=== PATIENT | male | born 1945 | race Caucasian/White ===

== ENCOUNTER 2018-05-18 14:51 | Emergency (ER) | payer MEDICARE, SELFPAY ==
[2018-05-18 14:56] VITALS: BP 142/83; PULSE 80; RESP 20; TEMP 36.6; O2SAT 97
--- NOTE | 2018-05-18 15:08 | ED.GENADUL_ITS ---
Discharge Plan Disposition Patient Disposition: HOME Condition: Stable Discharge Details Chief Complaint: Abd Prob Clinical Impression: Hematuria, Bladder mass, Left kidney mass Primary Care Provider: Brooks Davila ED Provider: Aure Ortiz Home Meds and New Rx's Prescriptions: Continue lorazepam 0.5 mg Tablet PO DAILY RF: 0 ranitidine HCl 150 mg Tablet 150 mg PO DAILY RF: 0 warfarin 5 mg Tablet 5 mg PO DAILY RF: 0 Discharge Instructions Instructions: Hematuria (ED) Additional Instructions: You should receive a call from care management regarding follow-up with urology at the [place]. You can also attempt to make an appointment with urology at the [place] within the next week. Return immediately to the emergency department any worsening or new concerning symptoms. Discharge Data Discharge Physician: Aure Ortiz Medical Decision Making 73yo M who is wheelchair bound due to severe osteoarthritis in b/l hips/knees who presents for hematuria with clots since last night. Admits to chronic left lower abdominal pain and urinary frequency for years but no acute complaint of abdominal pain. Denies fever, vomiting or diarrhea. No acute cauda equina symptoms. He state he has normal motor and sensory function below the waist for urinary and bowel but he only uses urinal and pads for bladder and bowel as he is wheelchair bound and does not ambulate due to severe leg pain. Mild hypertension otherwise vitals within normal limits. Appears generally unkempt, foul smelling, which seems to be from abdomen/groin candidal rash which does not appear acutely infected. Afebrile. Abdomen soft and diffusely mildly tender. No acute findings on exam. No CVAT. Chronic b/l LE edema with venous stasis. Differential diagnoses includes UTI, pyelonephritis, renal stone, neoplasm. My concern with tobacco history would be neoplasm. Will place an IV, labs, urinalysis, CT abdomen/pelvis, bolus IVF. 1745 --labs and imaging reviewed. White blood cell count 7.52. Hemoglobin 17.7. INR 2.2. Creatinine 0.94. Urinalysis notes greater than 50 RBCs but negative leukocyte esterase, negative nitrite. Urine culture sent. CT imaging notes a bladder wall mass which may represent inflammation, infection or neoplastic process. There was also mention of a left kidney mass. Discussed CT results with [facility] radiologist and she noted there was a significant amount of motion artifact during the study and difficult to assess. There was a questionable transverse colon mass, diverticulitis, and pneumoperitoneum, although it was thought that this was likely due to motion artifact. 1800 -- D/w Dr. Cherry and no acute intervention indicated. Recommends patient can follow[facility] with [facility] for [facility]. As patient is hemodynamically stable, normal white blood cell count, no nausea or vomiting, no complaint of acute abdominal pain, afebrile -- the findings of questionable transverse colon mass, diverticulitis, and pneumoperitoneum are likely due to motion artifact. These results were explained to patient and girlfriend. She states he has had a colonscopy within the last 2-3 years which has been normal. They are requesting to go home. She states patient is at his baseline and she feels good to take him home. Will place patient on care management list to help arrange for a follow-up appointment with the [place] [facility]. states that patient has seen urology there within the past year for his BPH. HPI General Mode of arrival: ambulatory . Date/Time Provider Initiated Documentation: 05/18/18 15:00 . Limitations to Documentation: no limitations . Information obtained by: patient . HPI Narrative: Pt is a 73yo M who presents for possible blood in urine since last night. states that she noticed reddish brown urine with clots last night. She states that pt has not ambulated since last year after a fall but has no diagnosed injury or illness and she states they attribute his inability to walk due to severe arthritis in hips and knees b/l. Pt urinates in urinal at baseline. Admits to a h/o chronic urinary frequency x 3 years and also admits to chronic LLQ abd pain for years and states this is no worse than usual. Denies fever, dysuria, flank pain. 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 States he is followed at the [place] and last saw his pcp and had PT/ INR checked on 04/27 but she does not know the results and denies any new meds or change in medications. Admits to weight loss of 30 lbs in last year but has been eating less. He does admit to having normal sensation and motor function below the waist but that he urinates in a urinal and stools on a pad due to severe leg pain with movement. Past medical history: DVT, GERD, BPH Surgical history: Cholecystectomy, Perforated ulcer Social history: Smokes tobacco, Denies alcohol or drugs Meds: Coumadin, Zantac, Lorazepam, Flomax Allergies: NKDA [facility] Home Medications Medication Instructions Recorded Confirmed lorazepam mg PO DAILY 05/18/18 ranitidine HCl 150 mg PO DAILY 05/18/18 05/18/18 warfarin 5 mg PO DAILY 05/18/18 05/18/18 Allergies Allergy/AdvReac Type Severity Reaction Status Date / Time No Known Allergies Allergy Unverified 05/18/18 14:59 General Stated Complaint: Abd Prob SHAKIRA: 3 Review of Systems Review of Systems All systems reviewed & are unremarkable except as noted in HPI and below Constitutional Reports as per HPI, Denies chills and Denies fever(s) Eyes Denies blurry vision ENT Denies dizziness, Denies sore throat and Denies throat swelling Cardiovascular Denies chest pain and Denies dyspnea Respiratory Denies dyspnea Gastrointestinal Reports abdominal pain (chronic), Denies diarrhea and Denies vomiting Genitourinary Reports hematuria, Denies dysuria, Denies testicular pain and Reports urinary frequency ( chronic) Musculoskeletal Denies back pain and Denies numbness Integumentary/Breasts Denies lesions and Denies rash Neurologic Denies dizziness and Denies numbness Allergic/Immunologic Denies throat swelling [facility] Social History Smoking/Tobacco Use Status: Current every day Exam Const General: cooperative, no acute distress, well groomed (foul smelling) and disheveled Orientation: alert and awake [facility] Head: normal to inspection Ears: hearing grossly normal bilaterally and external ears normal General nose exam: external nose normal Face and sinus: normal facial exam Eyes General: appearance normal, both eyes and all related structures Eyelids: eyelids normal Neck Neck: normal visual inspection Lymphatic: no lymphadenopathy noted Chest Chest: normal inspection of the chest Resp Effort & Inspection: normal respiratory effort and able to speak in complete sentences Auscultation: clear to auscultation bilaterally Cardio Rate: regular rate Rhythm: regular rhythm GI Inspection: other (Foul smelling, with erythematous candidal rash lower abdomen and b/l groin, no induration/abscess/drainage. ) Palpation: not firm, no guarding, no hepatosplenomegaly, no masses and tender ( mildly diffusely tender) Auscultation: normal bowel sounds Rectal Exam: other (brown stool around anus) Other: No blood noted at tip of penis. No tenderness to palpation, erythema/ edema/ecchymoses noted to testes b/l. Back/Spine/Pelvis Back: no CVA tenderness Neuro General: alert and awake Speech: speech normal Gait: normal gait Motor: other (moves all extremities spontaneously) Extrem Other: Chronic lower extremity skin changes with nonpitting indurated edematous lower extremities with purplish discoloration to distal lower extremities. B/L DP/PT pulses intact. B/L pedal edema. Psych Appearance: grossly normal Mental Status: mental status grossly normal Speech and Movement: speech and movement normal Affect: normal affect Thought Process: normal Course 05/18/18 16:37 Urine - Reflex from Ua Urine Culture - Pending Laboratory Tests Range/Units 05/18/18 05/18/18 05/18/18 15:40 15:40 15:40 WBC (4.4-10.8) k/cumm 7.52 RBC (4.50-6.00) m/cumm 5.72 Hgb (13.5-17.5) g/dL 17.7 H Hct (40.0-50.0) % 53.6 H MCV (80-95) fL 93.7 MCH (27.0-33.0) pg 30.9 MCHC (32.0-36.0) g/dL 33.0 RDW (11.8-14.1) % 14.9 H Plt Count (130-400) x1000/uL 175 MPV (8.0-11.0) fL 10.8 Immature Gran % 0.1 Neutrophils % 78.1 Lymphocytes % 15.8 Monocytes % 5.3 Eosinophils % 0.4 Basophils % 0.3 Absolute Neutrophils (1.2-6.7) k/cumm 5.87 Absolute Lymphocytes (1.2-3.4) k/cumm 1.19 L Absolute Monocytes (0.11-0.7) k/cumm 0.40 Absolute Eosinophils (0.0-0.7) k/cumm 0.03 Absolute Basophils (0.0-0.2) k/cumm 0.02 PT (9.3-10.8) sec 20.9 H INR (1.0-3.5) 2.2 APTT (21.0-31.4) sec 32.7 H Sodium (136-145) mmol/L 141 Potassium (3.5-5.1) mmol/L 4.0 Chloride (98-107) mmol/L 104 Carbon Dioxide (21.0-32.0) mmol/L 27.8 Anion Gap (3-11) mmol/L 9.2 BUN (7-18) mg/dL 10 Creatinine (0.70-1.30) mg/dL 0.94 Estimated GFR/1.73 m2 (mL/min/1.73m2) >= 60.00 Glucose (70-100) mg/dL 123 H Calcium (8.5-10.1) mg/dL 9.3 Urine Color (Yellow) Urine Clarity Urine pH (5-8) Ur Specific [place] (1.005-1.025) Urine Protein (Negative) mg/dL Urine Ketones (Negative) mg/dL Urine Blood (Negative) Urine Nitrite (Negative) Urine Bilirubin (Negative) Urine Urobilinogen (Up TO 0.2) EU/dL Ur Leukocyte Esterase (Negative) Urine RBC (0-2) Urine WBC Ur Epithelial Cells Urine Crystals Urine Bacteria Urine Mucus Ur Culture Indicated? Urine Glucose (Negative) mg/dL Range/Units 05/18/18 16:37 WBC (4.4-10.8) k/cumm RBC (4.50-6.00) m/cumm Hgb (13.5-17.5) g/dL Hct (40.0-50.0) % MCV (80-95) fL MCH (27.0-33.0) pg MCHC (32.0-36.0) g/dL RDW (11.8-14.1) % Plt Count (130-400) x1000/uL MPV (8.0-11.0) fL Immature Gran % Neutrophils % Lymphocytes % Monocytes % Eosinophils % Basophils % Absolute Neutrophils (1.2-6.7) k/cumm Absolute Lymphocytes (1.2-3.4) k/cumm Absolute Monocytes (0.11-0.7) k/cumm Absolute Eosinophils (0.0-0.7) k/cumm Absolute Basophils (0.0-0.2) k/cumm PT (9.3-10.8) sec INR (1.0-3.5) APTT (21.0-31.4) sec Sodium (136-145) mmol/L Potassium (3.5-5.1) mmol/L Chloride (98-107) mmol/L Carbon Dioxide (21.0-32.0) mmol/L Anion Gap (3-11) mmol/L BUN (7-18) mg/dL Creatinine (0.70-1.30) mg/dL Estimated GFR/1.73 m2 (mL/min/1.73m2) Glucose (70-100) mg/dL Calcium (8.5-10.1) mg/dL Urine Color (Yellow) Red Urine Clarity Cloudy Urine pH (5-8) 7.0 Ur Specific [place] (1.005-1.025) >= 1.030 H Urine Protein (Negative) mg/dL >=300 H Urine Ketones (Negative) mg/dL Trace H Urine Blood (Negative) Moderate H Urine Nitrite (Negative) Negative Urine Bilirubin (Negative) Small H Urine Urobilinogen (Up TO 0.2) EU/dL 4.0 H Ur Leukocyte Esterase (Negative) Negative Urine RBC (0-2) >50 H Urine WBC Not Applicable Ur Epithelial Cells Not Applicable Urine Crystals Not Applicable Urine Bacteria Not Applicable Urine Mucus Not Applicable Ur Culture Indicated? Yes Urine Glucose (Negative) mg/dL Negative Vital Signs Temperature 97.9 F 05/18/18 14:56 Pulse 80 05/18/18 14:56 Respiratory Rate 20 05/18/18 14:56 Blood Pressure 142/83 H 05/18/18 14:56 Pulse Oximetry 97 05/18/18 14:56 Temperature 97.9 F 05/18/18 14:56 Temperature Source Temporal Artery Scan 05/18/18 14:56 Pulse 80 05/18/18 14:56 Respiratory Rate 20 05/18/18 14:56 Respiratory Effort Non-Labored 05/18/18 15:00 Blood Pressure 142/83 H 05/18/18 14:56 Blood Pressure Position Sitting 05/18/18 14:56 Pulse Oximetry 97 05/18/18 14:56 Oxygen Delivery Method Room Air 05/18/18 14:56 Oxygen Flow Rate 0 05/18/18 14:56 Pain Level 2 05/18/18 14:56
[2018-05-18 15:48] LABS: Abs Immature Grans 0.01 k/cumm (0.0-0.09); Absolute Basophil Count 0.02 k/cumm (0.0-0.2); Absolute Eosinophil Count 0.03 k/cumm (0.0-0.7); Absolute Lymphocyte Count 1.19 k/cumm (1.2-3.4); Absolute Neutrophil Count 5.87 k/cumm (1.2-6.7); Basophils % 0.3; Eosinophils % 0.4; HCT 53.6 % (40.0-50.0); HGB 17.7 g/dL (13.5-17.5); Immature Grans % 0.1; Lymphocytes % 15.8; Mean Corpuscular Hemoglobin 30.9 pg (27.0-33.0); Mean Corpuscular Volume 93.7 fL (80-95); Mean Platelet Volume 10.8 fL (8.0-11.0); Monocytes % 5.3; Neutrophils % 78.1; Platelet Count 175 x1000/uL (130-400); RBC 5.72 m/cumm (4.50-6.00); RBC Distribution Width 14.9 % (11.8-14.1); White Blood Cell Count 7.52 k/cumm (4.4-10.8)
[2018-05-18 15:51] LABS: Anion Gap 9.2 mmol/L (3-11); BUN 10 mg/dL (7-18); CO2 27.8 mmol/L (21.0-32.0); CREATININE 0.94 mg/dL (0.70-1.30); Calcium 9.3 mg/dL (8.5-10.1); Chloride 104 mmol/L (98-107); Glucose 123 mg/dL (70-100); Sodium 141 mmol/L (136-145)
[2018-05-18 16:13] LABS: INR 2.2 (1.0-3.5); PTT Activated 32.7 sec (21.0-31.4); Prothrombin Time 20.9 sec (9.3-10.8)
--- NOTE | 2018-05-18 16:13 | DI.CT_ITS ---
SYMPTOMS/DIAGNOSIS: HEMATURIA, ? BLADDER MASS CT OF THE ABDOMEN AND PELVIS: Comparison is made with April,. Images were performed from the upper chest through the ischial tuberosities after IV contrast. The exam is limited by the patient's body habitus and motion. Again noted is a large ventral hernia containing nonobstructed loops of bowel. Mild diverticulosis is seen of the sigmoid region. Due to the degree of motion, mild diverticulitis cannot be excluded. There is no free air, free fluid or abnormal bowel dilatation. The lungs show respiratory motion. No infiltrates or effusions are seen. The patient is status post cholecystectomy. The liver, spleen and kidneys are unremarkable. Small nodules are seen on both adrenal glands, likely representing adenomas. A small nodule was seen on the left adrenal on the 2006 exam. It is not well evaluated due to the degree of motion. There are calcifications in the prostate, which is mildly enlarged. There is some wall thickening of the posterior bladder. No focal mass or stone is visible. There are severe degenerative changes of both hips. There are old compression fractures in the lower thoracic spine and degenerative changes in the lumbar spine. IMPRESSION: Limited exam due to patient motion. Stable-appearing anterior abdominal wall hernia containing nonobstructed loops of small bowel. No discrete bladder masses identified. Cystoscopy is recommended to exclude a bladder mass. No acute abnormalities identified.
[2018-05-18] MEDS: Normal Saline 1,000 ML 1000 ML IV (17:00)
[2018-05-18 17:08] LABS: Bilirubin Small (Negative); Blood Moderate (Negative); Clarity Cloudy; Glucose Negative (Negative); Ketones Trace mg/dL (Negative); Leukocyte Esterase Negative (Negative); Nitrite Negative (Negative); Specific Gravity >= 1.030 (1.005-1.025)
[2018-05-18 17:14] LABS: C & S Indicated? Yes; RBC >50 (0-2)
[2018-05-18] MEDS: Omnipaque 350 MG/ML 100 ML BTL IJ (17:14)
--- NOTE | 2018-05-18 17:49 | DI.VRAD_ITS ---
EXAM: CT Abdomen and Pelvis With Intravenous Contrast EXAM DATE/TIME: 05/18/2018 4:15 PM CLINICAL HISTORY: 73 years old, male; Signs and symptoms; Other: Hematuria; Additional info: R/O bladder mass TECHNIQUE: Axial computed tomography images of the abdomen and pelvis with intravenous contrast. Coronal and sagittal reformatted images were created and reviewed. Significant motion artifact degrades images COMPARISON: No relevant prior studies available. FINDINGS: Lower thorax: No acute findings. ABDOMEN: Liver: Normal. No mass. Gallbladder and bile ducts: Normal. No calcified stones. No ductal dilation. Pancreas: Normal. No ductal dilation. Spleen: Normal. No splenomegaly. Adrenals: Normal. No mass. Kidneys and ureters: Normal. No hydronephrosis. Stomach and bowel: Large ventral hernia contains multiple loops of bowel. There is a loop of proximal transverse colon containing 3 cm hyperdense mass (4:54). This could represent mass versus artifact. Diverticulosis of the rectosigmoid. There is motion artifact so it's difficult to differentiate motion artifact from pericolonic inflammatory changes. Acute diverticulitis cannot be completely ruled out. Appendix: Normal appendix. 2 collections of air in the right lower quadrant may be due to normal appendix versus motion. Pneumoperitoneum less likely but included in the differential. PELVIS: Bladder: Posterior bladder wall measures 13 mm. (4:80) This is nonspecific and may represent inflammation or infection. Neoplastic process and neurogenic bladder are included in the differential. Reproductive: Unremarkable ABDOMEN and PELVIS: Intraperitoneal space: There is a mass posterior to the splenic vein and adjacent to the left kidney. 2.5 x 2.2 cm (4:39, 40). It is adjacent to the left renal vein. It measures 50 Hounsfield units. Differential includes retroperitoneal mass such as neoplasm or adenopathy or aneurysm . Bones/joints: Severe degenerative changes in both hips Soft tissues: Unremarkable. Vasculature: There is a mass posterior to the splenic vein and adjacent to the left kidney. 2.5 x 2.2 cm (4:39, 40). It is adjacent to the left renal vein. It measures 50 Hounsfield units. Differential includes retroperitoneal mass such as neoplasm or adenopathy or aneurysm Lymph nodes: Normal. No enlarged lymph nodes. Other findings: Motion artifact degrades images IMPRESSION: 1. Posterior bladder wall measures 13 mm. (4:80) This is nonspecific and may represent inflammation or infection. Neoplastic process and neurogenic bladder are included in the differential. 2. Large ventral hernia contains multiple loops of bowel. There is a loop of proximal transverse colon containing 3 cm hyperdense mass (4:54). This could represent mass versus artifact. 3. Diverticulosis of the rectosigmoid. There is motion artifact so it's difficult to differentiate motion artifact from pericolonic inflammatory changes. Acute diverticulitis cannot be completely ruled out. 4. Normal appendix. 2 collections of air in the right lower quadrant may be due to normal appendix versus motion. Pneumoperitoneum less likely but included in the differential. 5. Significant motion artifact degrades images Dictated and Authenticated by: Marcus Mills MD. Ordering:ALL ACEVEDO MD
[2018-05-18 19:14] VITALS: BP 142/83; PULSE 80; RESP 20; TEMP 36.6; O2SAT 97
--- NOTE | 2018-05-19 08:42 | PDOC.ERCMPRO ---
Care Management Progress Note 05/19-Dr. Ortiz requested assistance with a [place] urology appt within one week for hematuria, bladder mass, and L kidney mass. Called patient this am and he stated that he sees the [place] in [place] and requested I make the f/u appts for him. Gómez stated that he was urinating blood, worse today than yesterday. He is very concerned. Recommended he return to the emergency department if he felt his symptoms were worse. Gómez's called back a few minutes later and stated, I am cleaning Gómez up and I am bringing him back to the emergency department. This CM notified Kelly, community relations police lieutenant. Called the [facility] and spoke with Gabby in Urology. Gabby stated that the referral needs to come from his PCP in [place]. Called [facility] and spoke with Deena. Deena stated she would send a referral, requested ED report as well as CT report be faxed to [phone] for which they were. Deena scheduled Gómez to see Dr. Cardona at the [facility] on May 26 at 11 am. Will give patient appt card when he comes back to the ED today. Will also fax todays ED note once patient has been seen.
--- NOTE | 2018-05-19 08:49 | CMPROGNOTE_ITS ---
Care Management Progress Note 05/19-Dr. Ortiz requested assistance with a [place] urology appt within one week for hematuria, bladder mass, and L kidney mass. Called patient this am and he stated that he sees the [place] in [place] and requested I make the f/u appts for him. Gómez stated that he was urinating blood , worse today than yesterday. He is very concerned. Recommended he return to the emergency department if he felt his symptoms were worse. Gómez's called back a few minutes later and stated, I am cleaning Gómez up and I am bringing him back to the emergency department. This CM notified Kelly, community health coordinator. Called the [facility] and spoke with Gabby in Urology. Gabby stated that the referral needs to come from his PCP in [place]. Called [facility] and spoke with Deena. Deena stated she would send a referral, requested ED report as well as CT report be faxed to [phone] for which they were. Deena scheduled Gómez to see Dr. Cardona at the [facility] on May 26 at 11 am. Will give patient appt card when he comes back to the ED today. Will also fax todays ED note once patient has been seen.
== END 2018-05-18 19:13 | disposition home or self-care (01) ==
PROVIDERS: Emergency Provider Physician Assistant; PCP Family Medicine Adult Medicine
DX: R31.9 Hematuria, unspecified (principal); N32.9 Bladder disorder, unspecified; N28.89 Other specified disorders of kidney and ureter
CPT/HCPCS: 36415; 80048; 96360; 99285; 74177; 81003; 81015; 85025; 85610; 85730; 87086; 99284; J3490

== ENCOUNTER 2018-05-19 11:18 | Emergency (ER) | payer MEDICARE, OTHER, SELFPAY ==
[2018-05-19 11:40] VITALS: BP 127/82; PULSE 110; RESP 18; TEMP 36.5; O2SAT 96
--- NOTE | 2018-05-19 12:56 | ED.GENADUL_ITS ---
Discharge Plan Disposition Patient Disposition: [facility] Condition: Fair Discharge Details Chief Complaint: Urinary Clinical Impression: Hematuria, Acute urinary retention Primary Care Provider: Brooks Davila ED Provider: Lore Amor Home Meds and New Rx's Prescriptions: Continue warfarin 5 mg Tablet 5 mg PO DAILY RF: 0 No Action tamsulosin [Flomax] 0.4 mg Capsule 0.4 mg PO DAILY RF: 0 sertraline 25 mg Tablet 25 mg PO DAILY RF: 0 Discharge Instructions Instructions: Urinary Retention in Men (ED), Zamorano Catheter Placement and Care (ED), Hematuria (ED) Additional Instructions: Encourage hydration. Please go from an emergency department to the [facility] in [place] emergency department. Catheter care as advised by nursing staff. Please keep upcoming appointment with your primary care, Dr. Blackmon. Appointment is for May 26 at 11 AM at the [facility] in [place]. [phone] Please keep appointment with Dr. Cherry for , May 21 at noon. Referrals: Marcus Cherry MD [ [facility] STAFF PHYSICIAN] - ([phone]) Discharge Data Discharge Date/Time-TO BE ENTERED AT DEPARTURE: 05/19/18 18:32 Medical Decision Making Patient is a 73 year old male presenting today, accompanied by , with c/c of urinary retention. Patient was seen here yesterday was diagnosed with a kidney and bladder mass. Head, yesterday with chief complaint of hematuria. Reports that since yesterday, his urinary discomfort has increased and he reports that he is now urinating clots or yesterday the urine was more blood- tinged. He denies any fevers or chills. States he has not been able to urinate since 5 AM. States that at that point, he was urinating long stringy clots. Will obtain repeat laboratory evaluation CBC and CMP. Bladder scan performed by nursing staff, noted to be around 300. Patient does have bloody discharge from the meatus. No CVA tenderness. No abdominal tenderness elicited with exam Consulted with Dania Rodas NP, regarding patient's complaints. I discussed with her the patient's anxiety regarding catheter placement as there are multiple times last night to place catheters that was unsuccessful and quite painful for the patient. She reports that she has L work better for patient with known BPH. Will bring one to the department Patient was seen by Dania Rodas [employer]. Catheter was able to be placed by nursing staff practitioner from urology. Patient immediately felt much improved. Had good flow of blood in urine. Reports that his abdominal pain has subsided as has his urgency discomfort, patient feeling much improved. Reviewed laboratory evaluation. Hemoglobin is 16. Kidney function is within normal limits. Urinalysis is significant for blood. Negative for leukocyte esterase and nitrites Discussed findings with the patient. I encouraged hydration. He does drink large amount of soda daily does not typically drink water. I advised that he increase his water intake, his reports that she will help with this. He has an appointment with urology in 2 days as well as follow-up with primary care next week. He was given strict return precautions. Catheter care was discussed by nursing staff. All his questions and concerns were addressed and he is in agreement this plan. Just prior to patient being discharged, nursing staff noted that the flow of urine had ceased. Appeared to have clotted. She attempted to flush the catheter with a liter of sterile fluid. However, despite this effort, catheter remains clotted. She was able to drop back the fluid that she inserted but the flow did not return. I am hesitant to remove this catheter as urology has been quite concerned with the size of a three-way catheter and that this may clot off more quickly. At this point, I will consult with urology once again. Our urology office is closed, unable to reach urologist We will consult with the [facility] to discuss transfer for urology care. Nursing staff here has continued to flush the catheter. Is able to get return initially but again, catheter collapse of quickly. Spoke with Dr. Leo with urology team at the [facility]. She advised that patient should have intervention today with neurology. However, does not feel that the patient is necessarily a candidate for inpatient admission. She is hoping that the patient may be transferred to their emergency department for urology consult and intervention with plan to discharge the patient home. Advised that he may go down there via private vehicle Consulted with Dr. Rojas in the emergency department who agrees to patient being transferred under his care for urology consult in the emergency department. Discussed plan with the patient. He and his prefer to go in a private vehicle. We discussed the risk of deterioration in transfer. I did offer transport via EMS and prefer transfer in their own vehicle. All of their questions and concerns were addressed and they are in agreement this plan. I have asked nursing staff to flush the patient just prior to leaving. HPI General Mode of arrival: wheelchair . Date/Time Provider Initiated Documentation: 05/19/18 11:45 . Limitations to Documentation: no limitations . Information obtained by: patient and family . History of Present Illness 73 year old M presents to the emergency department with the chief complaint of urinary retention, hematuria, described as severe, with intensity rated at 9. Quality is described as aching, and is localized to the abdomen (low central abdominal discomfort, feels that this is related to his urinary retention). Patient reports no radiation; denies radiation to back, abdomen and flank. Patient started experiencing this hour(s) (has not been able to urinate since 0500 today) and it has been constant. No relieving factors improve symptom(s), No exacerbating factors reported . Patient notes no other symptoms.; denies chest pain, cough, diaphoresis, fever/chills, loss of appetite, malaise, nausea/vomiting, rash, shortness of breath and syncope. Patient did receive the following treatments prior to arrival, none Related Data Home Medications Medication Instructions Recorded Confirmed warfarin 5 mg PO DAILY 05/18/18 05/19/18 sertraline 25 mg PO DAILY 05/19/18 05/19/18 tamsulosin [Flomax] 0.4 mg PO DAILY 05/19/18 05/19/18 Allergies Allergy/AdvReac Type Severity Reaction Status Date / Time No Known Allergies Allergy Unverified 05/19/18 12:24 General Stated Complaint: Urinary SHAKIRA: 3 Review of Systems Constitutional Reports as per HPI and Denies headache(s) ENT Denies headache(s) Cardiovascular Reports as per HPI, Denies chest pain and Denies dyspnea Respiratory Denies cough and Denies dyspnea Gastrointestinal Reports as per HPI, Reports abdominal pain, Denies change in stool character, Denies nausea and Denies vomiting Genitourinary Reports as per HPI, Reports hematuria, Reports difficulty urinating, Denies genital lesions, Denies genital pain, Reports dysuria, Denies flank pain, Denies testicular mass, Denies testicular pain and Reports urinary incontinence (has noted blood coming from penis, does not feel that he is incontinent of urine) Musculoskeletal Reports as per HPI (patient is non-ambulatory at baseline secondary to chronic problems with his bilateral lower extremities.) Integumentary/Breasts Denies new lesions, Denies erythema, Denies rash and Denies jaundice Neurologic Denies headache(s) Exam Const General: cooperative, comfortable, no acute distress, well developed and well groomed Nutritional Appearance: well nourished and overweight Orientation: alert, awake and oriented x3 Resp Effort & Inspection: normal respiratory effort, able to speak in complete sentences and no respiratory distress Auscultation: clear to auscultation bilaterally, no rales, no rhonchi and no wheezes Cardio Rate: regular rate Rhythm: regular rhythm Heart Sounds: S1 normal and S2 normal GI Inspection: scar (patient has large, irrgularly shaped scar running vertically down the abdomen with indentation of the abdominal wall.) Palpation: soft and no hepatosplenomegaly Male General Exam: No normal external exam (patient has blood coming from meatus ), No ecchymosis, No edema, No lacerations, No lesions and No tenderness Penis: normal penis Meatus: meatal discharge (blood) Scrotum: scrotum normal Back/Spine/Pelvis Back: no CVA tenderness Skin General skin exam: no rashes or lesions noted Neuro General: alert and awake Cognition: normal cognition Speech: speech normal Gait: gait abnormal (patient unable to ambulate at baseline) Psych Appearance: grossly normal and well kempt Mental Status: mental status grossly normal Speech and Movement: speech and movement normal Course Vital Signs Temperature 36.5 C 05/19/18 11:40 Pulse 110 H 05/19/18 11:40 Respiratory Rate 18 05/19/18 11:40 Blood Pressure 127/82 05/19/18 11:40 Pulse Oximetry 96 05/19/18 11:40 Temperature 36.5 C 05/19/18 11:40 Temperature Source Skin 05/19/18 11:40 Pulse 110 H 05/19/18 11:40 Respiratory Rate 18 05/19/18 11:40 Respiratory Effort Non-Labored 05/19/18 11:43 Blood Pressure 127/82 05/19/18 11:40 Blood Pressure Position Sitting 05/19/18 11:40 Pulse Oximetry 96 05/19/18 11:40 Oxygen Delivery Method Room Air 05/19/18 11:40 Oxygen Flow Rate 0 05/19/18 11:40 Pain Level 05/19/18 12:23
[2018-05-19 13:49] LABS: Bilirubin Small (Negative); Blood Large (Negative); Clarity Turbid; Glucose 100 mg/dL (Negative); Ketones Negative (Negative); Leukocyte Esterase Negative (Negative); Nitrite Negative (Negative); Specific Gravity 1.025 (1.005-1.025); pH 7.5 (5-8)
[2018-05-19] MEDS: Lidocaine 2% Jelly 11 ML SYR (13:55)
[2018-05-19 14:01] LABS: C & S Indicated? Yes; RBC >50 (0-2)
[2018-05-19 14:08] LABS: Abs Immature Grans 0.03 k/cumm (0.0-0.09); Absolute Basophil Count 0.02 k/cumm (0.0-0.2); Absolute Eosinophil Count 0.01 k/cumm (0.0-0.7); Absolute Lymphocyte Count 0.91 k/cumm (1.2-3.4); Absolute Monocyte Count 0.54 k/cumm (0.11-0.7); Absolute Neutrophil Count 8.67 k/cumm (1.2-6.7); Basophils % 0.2; Eosinophils % 0.1; HCT 49.4 % (40.0-50.0); HGB 16.1 g/dL (13.5-17.5); Immature Grans % 0.3; Lymphocytes % 8.9; Mean Corp. HGB Concentration 32.6 g/dL (32.0-36.0); Mean Corpuscular Hemoglobin 30.6 pg (27.0-33.0); Mean Corpuscular Volume 93.7 fL (80-95); Mean Platelet Volume 10.6 fL (8.0-11.0); Monocytes % 5.3; Neutrophils % 85.2; Platelet Count 198 x1000/uL (130-400); RBC 5.27 m/cumm (4.50-6.00); RBC Distribution Width 14.7 % (11.8-14.1); White Blood Cell Count 10.18 k/cumm (4.4-10.8)
[2018-05-19 14:17] LABS: ALT 19 U/L (12-78); AST 22 U/L (15-37); Albumin 3.2 g/dL (3.4-5.0); Alkaline Phosphatase 90 U/L (46-116); Anion Gap 9.5 mmol/L (3-11); BUN 10 mg/dL (7-18); CO2 27.5 mmol/L (21.0-32.0); CREATININE 0.93 mg/dL (0.70-1.30); Chloride 103 mmol/L (98-107); Glucose 110 mg/dL (70-100); Potassium 3.9 mmol/L (3.5-5.1); Sodium 140 mmol/L (136-145); Total Protein 6.8 g/dL (6.4-8.2)
[2018-05-19 18:32] VITALS: BP 151/82; PULSE 78; RESP 18; TEMP 36.8; O2SAT 94
--- NOTE | 2018-05-19 18:34 | NUR.NOTE ---
Nursing Note: After the insertion of the patients serrano cath. This policy writer typist had to flush the cath with sterile water every 20 min until he [facility] Large clots occluded the end of the cath. Patient got back what she flushed each time along with large clots. Upon leaving patients cath was flowing with no clots present at this time.
== END 2018-05-19 18:32 | disposition short-term general hospital (02) ==
PROVIDERS: Emergency Provider Physician Assistant; PCP Family Medicine Adult Medicine
DX: R31.0 Gross hematuria (principal); R33.9 Retention of urine, unspecified; Z79.01 Long term (current) use of anticoagulants
CPT/HCPCS: 36415; 51700; 51703; 80053; 99285; 81003; 81015; 85025; 87086; 99284

== ENCOUNTER 2018-08-21 20:52 | Outpatient (REF) | payer OTHER, SELFPAY ==
[2018-08-21 21:22] LABS: INR 1.9 (0.9-1.1); Prothrombin Time 19.4 sec (9.3-11.0)
== END 2018-08-21 21:12 ==
LOC: LBN 20:52
PROVIDERS: PCP Family Medicine Adult Medicine; Visit Provider Internal Medicine
DX: I27.82 Chronic pulmonary embolism (principal); Z79.01 Long term (current) use of anticoagulants
CPT/HCPCS: 85610

== ENCOUNTER 2018-09-11 21:39 | Outpatient (REF) | payer OTHER, MEDICARE, SELFPAY ==
[2018-09-11 22:48] LABS: INR 2.3 (0.9-1.1); Prothrombin Time 23.3 sec (9.3-11.0)
== END 2018-09-11 21:59 ==
LOC: LBN 21:39
PROVIDERS: PCP Family Medicine Adult Medicine; Visit Provider Internal Medicine
DX: I27.82 Chronic pulmonary embolism (principal); Z79.01 Long term (current) use of anticoagulants; Z51.81 Encounter for therapeutic drug level monitoring
CPT/HCPCS: 85610

== ENCOUNTER 2018-10-28 17:31 | Emergency (ER) | payer OTHER, MEDICARE, SELFPAY ==
[2018-10-28] VITALS (8 sets, daily range): BP systolic 105–124; BP diastolic 56–82; PULSE 84–95; RESP 18–24; TEMP 36.6–37; O2SAT 92–96
--- NOTE | 2018-10-28 17:49 | NUR.NOTE ---
Arrives via EMS. Left #20 G PIV placed by EMS. Labs drawn via IV. Nursing Note:
--- NOTE | 2018-10-28 17:54 | W.ED.GENAD ---
Discharge Plan Disposition Patient Disposition: [facility] [place] Condition: Stable Discharge Details Chief Complaint: GenMedical Clinical Impression: Adult failure to thrive, Noncompliance with medications, Subtherapeutic international normalized ratio (INR) ED Provider: Manuel Rodney Gilbert Medtoshia and New Rx's Prescriptions: No Action miconazole nitrate 2 % Powder RF: 0 ranitidine HCl 150 mg Tablet 150 mg PO BID RF: 0 gabapentin 300 mg Capsule 900 mg PO TID RF: 0 folic acid 1 mg Tablet 1 mg PO DAILY RF: 0 cholecalciferol (vitamin D3) 1,000 unit Tablet 1,000 unit PO DAILY RF: 0 warfarin 5 mg Tablet 5 mg PO DAILY RF: 0 tamsulosin [Flomax] 0.4 mg Capsule 0.4 mg PO DAILY RF: 0 sertraline 25 mg Tablet 25 mg PO DAILY RF: 0 Medical Decision Making Patient without acute complaint. He does have chronic complaints. His abdomen is diffusely tender but not localizing and is soft without guarding. He has bilateral pedal edema with venous stasis changes but pulses are present. No evidence of cellulitis. Chronic groin tinea. Not febrile here. Per EMS and per significant other and her family once they arrived, his trailer truly is uninhabitable. Will initiate general workup as patient has been refusing previous medical evaluation and transfer. He has previously been to this hospital with hematuria and urinary retention. He is a very difficult straight cath patient. Bladder scan is only about 120 mL. We will hold off on attempting straight cath if he is able to urinate on his own. 20:00 -patient's vital signs have been good. Laboratory studies for the most part unremarkable. He is a fairly malnourished with an albumin of 2.4. Kidney and liver function normal. He has not therapeutic on his Coumadin with an iron of 1.1. He admits that maybe he has been missing doses of medications. Still have not obtained urine. Chest x-ray reveals a tortuous aorta but I do not appreciate airspace disease. Waiting for preliminary radiology report. I did discuss with patient and with significant other that I will need to speak to physician at [facility] to determine next course of action. Patient agrees with EMS, home health, significant other's statement that he is unsafe to be at home. 21:15 -[facility] has accepted the patient for admission for failure to thrive, medication noncompliance, subtherapeutic INR. [facility] will be sending their contracted ambulance service to get the patient. Medical Records Medical records reviewed: Yes I reviewed the patient's medical records. Lab Data Lab results reviewed: Yes I reviewed the patient's lab results. ECG Data Attestation: I personally reviewed and interpreted this ECG (s) as follows: Prior ECG tracings: not available for review Interpretation: Undetermined rhythm, possibly A. fib with PVCs. Rate at 87. Left axis present. Artifact present. No acute ST changes noted. HPI General Mode of arrival: EMS. Date/Time Provider Initiated Documentation: 10/28/18 17:54. Information obtained by: patient, family, EMS, RN notes reviewed and old records reviewed. HPI Narrative: Patient is brought in by EMS with generalized complaints including chronic abdominal pain, lack of appetite, bilateral leg swelling. By EMS report the trailer he lives in is uninhabitable due to squalor and trash. Patient has been refusing transfer to hospital until today. He has no new acute complaints. EMS reports fever today but patient states he did not feel ill. There is no change in his chronic abdominal pain. He has nausea and lack of appetite which is old. He smokes 2 packs a day. He does not have chest pain or shortness of breath. He has a smoker's cough. He is nonambulatory and essentially lies in bed all day. He does take his medications including Coumadin for previous DVT. Related Data Home Medications Medication Instructions Recorded Confirmed warfarin 5 mg PO DAILY 05/18/18 10/28/18 sertraline 25 mg PO DAILY 05/19/18 10/28/18 tamsulosin [Flomax] 0.4 mg PO DAILY 05/19/18 10/28/18 cholecalciferol (vitamin D3) 1,000 unit PO DAILY 10/28/18 10/28/18 folic acid 1 mg PO DAILY 10/28/18 10/28/18 gabapentin 900 mg PO TID 10/28/18 10/28/18 miconazole nitrate 10/28/18 ranitidine HCl 150 mg PO BID 10/28/18 10/28/18 Allergies Allergy/AdvReac Type Severity Reaction Status Date / Time No Known Allergies Allergy Unverified 10/28/18 17:58 General Stated Complaint: GenMedical SHAKIRA: 3 Review of Systems Review of Systems 10/14 Review of Systems completed and is negative except as stated above in HPI (Systems reviewed: Const, Eyes, ENT, Resp, CV, GI, , MSK, Skin, Neuro) [facility] Medical History BPH (benign prostatic hyperplasia) (Chronic) COPD (chronic obstructive pulmonary disease) (Chronic) CVA (cerebral vascular accident) (Chronic) DVT (deep venous thrombosis) (Chronic) Obesity (Chronic) Venous (peripheral) insufficiency (Chronic) Surgical History H/O abdominal surgery (Inactive) Social History Smoking/Tobacco Use Status: Current every day Tobacco Type: cigarettes Years smoked: 60 Alcohol Intake: never Drug use: Never Substance use type: does not use Do you feel safe at home: No (My home is a mess) Do you feel safe in your relationship?: Yes Exam Narrative Exam Narrative: 1. Const: Obese male in NAD. 2. Eyes: No conjunctival injection or scleral icterus. 3. ENT: NC/AT. No facial swelling or tenderness. Mucous membranes moist. 4. Neck: Supple. Trachea midline. 5. CVS: +S1/S2, No murmurs. Irregular rhythm. Peripheral pulses 2+ and equal in all extremities. 6. RESP: Unlabored respiratory effort. Clear to auscultation bilaterally except for few scattered wheeze 7. GI: Soft, Nondistended but generally tender without focal finding. No guarding or rebound. 8. MSK: No C/C present. Significant bilateral pedal edema with venous stasis changes. 9. Skin: Warm, Dry. Chronic groin/ tinea rash. 10. Neuro: A&O x3. senior informatica developer II-XII grossly intact. Sensation a little decreased and a little weak on right, from previous CVA. 11. Psych: Appropriate mood and affect Course Vital Signs Temperature 98.1 F 10/28/18 17:36 Pulse 93 H 10/28/18 17:36 Respiratory Rate 18 10/28/18 17:36 Blood Pressure 113/71 10/28/18 17:36 Pulse Oximetry 96 10/28/18 17:36 Temperature 98.1 F 10/28/18 17:36 Temperature Source Oral 10/28/18 17:36 Pulse 93 H 10/28/18 17:36 Respiratory Rate 18 10/28/18 17:36 Respiratory Effort 10/28/18 17:45 Blood Pressure 113/71 10/28/18 17:36 Blood Pressure Position Supine 10/28/18 17:36 Pulse Oximetry 96 10/28/18 17:36 Oxygen Delivery Method Room Air 10/28/18 17:36 Oxygen Flow Rate 0 10/28/18 17:36 Pain Level 4 10/28/18 17:36
[2018-10-28] MEDS: Lidocaine 2% Jelly 11 ML SYR UR (18:29)
[2018-10-28] MEDS: Normal Saline Flush 10 ML SYR IVP (18:30)
[2018-10-28] MEDS: Normal Saline 1,000 ML 150 ML IV (18:31)
--- NOTE | 2018-10-28 18:56 | NUR.NOTE ---
Bladder scan = 120cc at 1800. Decision not to straight cath based on urology hx and RN unable to visualize urethra. Dr. Rodney notified. Sarah area caked with powder; pannus and groin folds cleansed. Adherent dried stool to perianal area cleansed. Anterior folds with rashlike erythema; perianal skin intact. Nursing Note:
[2018-10-28 19:25] LABS: Absolute Basophil Count 0.01 k/cumm (0.0-0.2); Absolute Eosinophil Count 0.05 k/cumm (0.0-0.7); Absolute Lymphocyte Count 1.25 k/cumm (1.2-3.4); Absolute Monocyte Count 0.54 k/cumm (0.11-0.7); Absolute Neutrophil Count 5.77 k/cumm (1.2-6.7); Basophils % 0.1; Eosinophils % 0.7; HCT 46.3 % (40.0-50.0); Lymphocytes % 16.4; Mean Corp. HGB Concentration 32.4 g/dL (32.0-36.0); Mean Corpuscular Hemoglobin 30.9 pg (27.0-33.0); Mean Corpuscular Volume 95.5 fL (80-95); Mean Platelet Volume 10.5 fL (8.0-11.0); Monocytes % 7.1; Neutrophils % 75.7; Platelet Count 187 x1000/uL (130-400); RBC 4.85 m/cumm (4.50-6.00); RBC Distribution Width 14.6 % (11.8-14.1); White Blood Cell Count 7.62 k/cumm (4.4-10.8)
[2018-10-28 19:31] LABS: INR 1.1 (0.9-1.1); Prothrombin Time 10.9 sec (9.3-11.0)
[2018-10-28 19:36] LABS: ALT 13 U/L (12-78); AST 14 U/L (15-37); Albumin 2.4 g/dL (3.4-5.0); Alkaline Phosphatase 86 U/L (46-116); Anion Gap 5.4 mmol/L (3-11); BUN 13 mg/dL (7-18); Bilirubin, Total 0.5 mg/dL (0.2-1.0); CO2 32.6 mmol/L (21.0-32.0); CREATININE 0.85 mg/dL (0.70-1.30); Calcium 8.1 mg/dL (8.5-10.1); Chloride 105 mmol/L (98-107); Glucose 79 mg/dL (70-100); Lipase 103 U/L (73-393); Magnesium 1.8 mg/dL (1.8-2.4); Potassium 3.7 mmol/L (3.5-5.1); Sodium 143 mmol/L (136-145); Total Protein 5.5 g/dL (6.4-8.2)
[2018-10-28 19:41] LABS: Troponin I < 0.02 ng/mL (0.00-0.06)
--- NOTE | 2018-10-28 19:50 | DI.RAD_ITS ---
SYMPTOM/DIAGNOSIS: WEAKNESS AP AND LATERAL CHEST: The lungs are free of infiltrate. There is no evidence of a pneumothorax or sizable pleural effusion. The heart is not enlarged. SUMMARY: No evidence of acute cardiopulmonary disease.
--- NOTE | 2018-10-28 20:09 | DI.VRAD_ITS ---
EXAM: XR Chest, 2 Views EXAM DATE/TIME: 10/28/2018 6:51 PM CLINICAL HISTORY: 73 years old, male; Signs and symptoms; Other: General weakness TECHNIQUE: Imaging protocol: XR of the chest, 2 views. COMPARISON: No relevant prior studies available. FINDINGS: Lungs: Clear lungs. Pleural space: No pneumothorax. No sizable pleural effusion. Heart/Mediastinum: No cardiomegaly. Bones/joints: Unremarkable. IMPRESSION: Clear lungs. Dictated and Authenticated by: Hammad Jiang MD. Ordering:FAITH Jackson MD
[2018-10-28] MEDS: Acetaminophen 500 MG TAB 1000 MG PO (21:21)
== END 2018-10-28 23:46 | disposition short-term general hospital (02) ==
PROVIDERS: Emergency Provider Emergency Medicine
DX: R62.7 Adult failure to thrive (principal); R79.1 Abnormal coagulation profile; T45.515A Adverse effect of anticoagulants, initial encounter; Z79.01 Long term (current) use of anticoagulants; Z91.14 Patient's other noncompliance with medication regimen
CPT/HCPCS: 36415; 80053; 83690; 93005; 96360; 96361; 99285; 71046; 83735; 84484; 85025; 85610; 93010

== ENCOUNTER 2018-11-19 16:06 | Emergency (ER) | payer MEDICARE, SELFPAY ==
[2018-11-19] VITALS (40 sets, daily range): BP systolic 79–125; BP diastolic 55–96; PULSE 67–112; RESP 17–24; TEMP 36.7; O2SAT 86–98
--- NOTE | 2018-11-19 16:22 | W.ED.GENAD ---
Discharge Plan Disposition Patient Disposition: [facility], [place] Condition: Stable Discharge Details Chief Complaint: SOB Clinical Impression: Pneumonia, CHF exacerbation, Hypoxia Primary Care Provider: Unknown,Unknown ED Provider: Lore Amor Home Meds and New Rx's Prescriptions: No Action miconazole nitrate 2 % Powder RF: 0 ranitidine HCl 150 mg Tablet 150 mg PO BID RF: 0 gabapentin 300 mg Capsule 300 mg PO TID RF: 0 folic acid 1 mg Tablet 1 mg PO DAILY RF: 0 cholecalciferol (vitamin D3) 1,000 unit Tablet 1,000 unit PO DAILY RF: 0 multivitamin Tablet 1 tab PO DAILY RF: 0 gabapentin 600 mg Tablet 600 mg PO .QHS RF: 0 nicotine 14 mg/24 hr Patch 24 Hour .Q24 HOURS RF: 0 cyanocobalamin (vitamin B-12) 1,000 mcg Tablet 1,000 mcg PO DAILY RF: 0 apixaban 5 mg Tablet 5 mg PO BID RF: 0 warfarin 5 mg Tablet 5 mg PO DAILY RF: 0 tamsulosin [Flomax] 0.4 mg Capsule 0.4 mg PO DAILY RF: 0 sertraline 25 mg Tablet 25 mg PO DAILY RF: 0 Discharge Data Discharge Date/Time-TO BE ENTERED AT DEPARTURE: 11/19/18 22:14 Medical Decision Making <AYSE Kemp - Last Filed: 11/21/18 15:15> Patient is 73-year-old male presents today with chief complaint of shortness of breath. Patient has history of obesity, BPH, COPD, CVA, DVT, peripheral vascular insufficiency. Currently anticoagulated on apixaban. He is currently requiring 3 L nasal cannula to maintain his oxygen mid 90s. Patient is obese, appears flushed with nasal flaring. Patient is not tachypneic. He is 95% on 3 L but did desaturate to 83% on room air. Patient reports that he has been taking his medications as prescribed, I presume these are given to him by health and rehab. Per their record, he received his apixaban as scheduled. Patient did have a palpable cord with positive Homans on the right lower extremity. Contacted health and rehab, [facility] reports that hte palpable cord in the RLE is none acute. Patient has a wet cough on exam. He sounds coarse, particularly on the right side on auscultation. No wheezing is noted. Prompted coughing and he was unable to produce a forceful cough. Abdomen soft and nontender, postsurgical changes are noted. Bilateral lower extremity edema, worse in the right than the left. Plan obtain chest x-ray, baseline labs, EKG. patient is currently denying any symptoms although clearly he has having a frequent cough and does appear short of breath. Seems to be a poor historian. Is a patient has such a wet sounding cough, I am primarily concerned for infectious source will obtain chest x-ray as well as baseline labs. Also considering ACS, CHF. EKG reviewed by Dr. Dumont with no acute abnormalities noted. He was able to compare to previous with no acute changes Chest x-ray reviewed by radiologist concerning for patchy infiltrate in the right base which is new as well as cardiomegaly Plan to treat patient for pneumonia. She was recently hospitalized we will treat for community-acquired. Patient's BNP is over 3000. I do not see previous diagnosis of CHF. He does have upper extremity edema, worse on the right and the left. Plan to give Lasix. I do not see that he is on this at home. Patient received 20 mg of IV Lasix, 2 g of cefepime, 500 mg of azithromycin. Patient continues to be hypoxic. He continues to appear short of breath, particular with movement. Patient's is now at the bedside he reports that he appeared quite ill yesterday with a productive cough. She reports that he appeared fatigued and flushed. Plan to hospitalize the patient for pneumonia, hypoxia and CHF. Is a patient is [facility] will consult with them Spoke with admitting physician at [facility]. He requested VBG, lactate and advised obtaining a rapid influenza. He did request that I begin empiric treatment of possible influenza. That is available at the [facility], patient will be transferred to them via EMS. Discussed this plan with the patient and his on agreement [id number]. This appears chronic. Discussed with Dr. Rodney. pH normal. Influenza negative <Jonas Dumont MD - Last Filed: 11/19/18 16:30> ECG Data Attestation: I personally reviewed and interpreted this ECG (s) as follows: Prior ECG tracings: available for review Interpretation: afib, rate of 80, no acute st t wave ischemic changes, qtc 434 HPI <AYSE Kemp - Last Filed: 11/21/18 15:15> General Mode of arrival: EMS. Date/Time Provider Initiated Documentation: 11/19/18 16:10. Limitations to Documentation: no limitations. Information obtained by: patient, EMS and RN notes reviewed. HPI Narrative: Patient is a 73-year-old male sent to the emergency department by health and rehab via EMS for chief complaint shortness of breath and hypoxia. EMS reports patient has been requiring 3 L of nasal cannula, desaturates into the mid 80s on room air. Patient has history of obesity, BPH, COPD, CVA, DVT, peripheral vascular insufficiency. He was hospitalized recently for failure to thrive. It is after that that he became a health and rehab patient. Patient himself is denying any complaints. He does not feel short of breath, denies chest pain, abdominal pain, nausea, any radiating discomfort. Reports that overall he is feeling quite well. Denies any recent illness. Denies any fevers or chills. Denies any cough or upper respiratory elements. Related Data Home Medications Medication Instructions Recorded Confirmed warfarin 5 mg PO DAILY 05/18/18 11/19/18 sertraline 25 mg PO DAILY 05/19/18 11/19/18 tamsulosin [Flomax] 0.4 mg PO DAILY 05/19/18 11/19/18 cholecalciferol (vitamin D3) 1,000 unit PO DAILY 10/28/18 11/19/18 folic acid 1 mg PO DAILY 10/28/18 11/19/18 gabapentin 300 mg PO TID 10/28/18 11/19/18 miconazole nitrate 10/28/18 ranitidine HCl 150 mg PO BID 10/28/18 11/19/18 apixaban 5 mg PO BID 11/19/18 11/19/18 cyanocobalamin (vitamin B-12) 1,000 mcg PO DAILY 11/19/18 11/19/18 gabapentin 600 mg PO .QHS 11/19/18 11/19/18 multivitamin 1 tab PO DAILY 11/19/18 11/19/18 nicotine .Q24 HOURS 11/19/18 Allergies Allergy/AdvReac Type Severity Reaction Status Date / Time No Known Allergies Allergy Unverified 11/19/18 17:04 General Stated Complaint: SOB SHAKIRA: 2 Review of Systems <AYSE eKmp - Last Filed: 11/21/18 15:15> Constitutional Reports as per HPI, Denies chills, Denies fatigue, Denies fever(s) and Denies poor appetite ENT Denies otalgia, Denies nasal congestion, Denies neck pain, Denies sinus pressure, Denies sore throat, Denies throat swelling and Denies tongue swelling Cardiovascular Denies chest pain, Denies chest pain at rest, Denies diaphoresis, Denies syncope, Denies radiating jaw, neck or arm pain, Denies palpitations, Reports dyspnea and Reports dyspnea on exertion Respiratory Reports as per HPI, Reports dyspnea and Reports dyspnea on exertion Gastrointestinal Reports as per HPI, Denies abdominal pain, Denies melena, Denies change in stool character, Denies diarrhea, Denies nausea and Denies vomiting Genitourinary Denies system reviewed and no additional complaints, except as docu (denies any change in urinary habits) Musculoskeletal Reports as per HPI, Denies back pain, Denies neck pain and Reports other (chronic RLE pain) Integumentary/Breasts Reports as per HPI, Denies erythema and Denies wounds Neurologic Denies syncope Endocrine Denies fatigue and Denies palpitations Allergic/Immunologic Denies throat swelling and Denies tongue swelling PFSH <AYSE Kemp - Last Filed: 11/21/18 15:15> Medical History BPH (benign prostatic hyperplasia) (Chronic) COPD (chronic obstructive pulmonary disease) (Chronic) CVA (cerebral vascular accident) (Chronic) DVT (deep venous thrombosis) (Chronic) Obesity (Chronic) Venous (peripheral) insufficiency (Chronic) Surgical History H/O abdominal surgery (Inactive) Social History Smoking/Tobacco Use Status: Current every day Tobacco Type: cigarettes Alcohol Intake: never Drug use: Never Substance use type: does not use Details: Nicotine patch Do you feel safe at home: No (My home is a mess) Do you feel safe in your relationship?: Yes Exam <AYSE Kemp - Last Filed: 11/21/18 15:15> Const General: cooperative, comfortable, no acute distress, well developed and ill appearing chronically Nutritional Appearance: well nourished and overweight Orientation: alert, awake and oriented x3 HENMT Head: normal to inspection Ears: hearing grossly normal bilaterally Mouth: moist mucous membranes Chest Chest: normal inspection of the chest, normal palpation of entire chest wall and no crepitus Resp Effort & Inspection: normal respiratory effort, able to speak in complete sentences and no respiratory distress Auscultation: no rales, rhonchi right upper and right lower and no wheezes Cardio Rate: regular rate Rhythm: regular rhythm Heart Sounds: S1 normal and S2 normal GI Inspection: normal to inspection, no edema and non-distended Palpation: soft, no hepatosplenomegaly, not firm, no guarding, not rigid and nontender Auscultation: normal bowel sounds Back/Spine/Pelvis Back: no CVA tenderness Thoracic/Lumbar Spine: thoracic and lumbar spine normal to inspection Skin General skin exam: no rashes or lesions noted Trauma: no lacerations or abrasions Neuro General: alert, awake and oriented x3 Cognition: normal cognition Speech: speech normal Gait: normal gait Extrem General: normal to inspection, normal capillary refill, abnormal gait (patient does not ambulate at baseline), calf tenderness (palpable cord) on the right and edema Laterality: bilateral (right > left) Psych Appearance: grossly normal and well kempt Mental Status: mental status grossly normal Speech and Movement: speech and movement normal Course <AYSE Kemp - Last Filed: 11/21/18 15:15> Vital Signs Temperature 36.7 C 11/19/18 16:11 Pulse 87 11/19/18 16:11 Respiratory Rate 22 11/19/18 16:11 Pulse Oximetry 95 11/19/18 16:11 Temperature 36.7 C 11/19/18 16:11 Temperature Source Temporal Artery Scan 11/19/18 16:11 Pulse 87 11/19/18 16:11 Respiratory Rate 22 11/19/18 16:11 Respiratory Effort Labored 11/19/18 16:16 Blood Pressure Position Supine 11/19/18 16:11 Pulse Oximetry 95 11/19/18 16:11 Oxygen Delivery Method Nasal Cannula 11/19/18 16:11 Oxygen Flow Rate 3 11/19/18 16:11 Pain Level 0 11/19/18 16:11
--- NOTE | 2018-11-19 16:25 | ED.GENADUL_ITS ---
Discharge Plan Disposition Patient Disposition: [facility], [place] Condition: Stable Discharge Details Chief Complaint: SOB Clinical Impression: Pneumonia, CHF exacerbation, Hypoxia Primary Care Provider: Unknown,Unknown ED Provider: Lore Amor Home Meds and New Rx's Prescriptions: No Action miconazole nitrate 2 % Powder RF: 0 ranitidine HCl 150 mg Tablet 150 mg PO BID RF: 0 gabapentin 300 mg Capsule 300 mg PO TID RF: 0 folic acid 1 mg Tablet 1 mg PO DAILY RF: 0 cholecalciferol (vitamin D3) 1,000 unit Tablet 1,000 unit PO DAILY RF: 0 multivitamin Tablet 1 tab PO DAILY RF: 0 gabapentin 600 mg Tablet 600 mg PO .QHS RF: 0 nicotine 14 mg/24 hr Patch 24 Hour .Q24 HOURS RF: 0 cyanocobalamin (vitamin B-12) 1,000 mcg Tablet 1,000 mcg PO DAILY RF: 0 apixaban 5 mg Tablet 5 mg PO BID RF: 0 warfarin 5 mg Tablet 5 mg PO DAILY RF: 0 tamsulosin [Flomax] 0.4 mg Capsule 0.4 mg PO DAILY RF: 0 sertraline 25 mg Tablet 25 mg PO DAILY RF: 0 Discharge Data Discharge Date/Time-TO BE ENTERED AT DEPARTURE: 11/19/18 22:14 Medical Decision Making <AYSE Kemp - Last Filed: 11/21/18 15:15> Patient is 73-year-old male presents today with chief complaint of shortness of breath. Patient has history of obesity, BPH, COPD, CVA, DVT, peripheral vascular insufficiency. Currently anticoagulated on apixaban. He is currently requiring 3 L nasal cannula to maintain his oxygen mid 90s. Patient is obese, appears flushed with nasal flaring. Patient is not tachypneic. He is 95% on 3 L but did desaturate to 83% on room air. Patient reports that he has been taking his medications as prescribed, I presume these are given to him by health and rehab. Per their record, he received his apixaban as scheduled. Patient did have a palpable cord with positive Homans on the right lower extremity. Contacted health and rehab, [facility] reports that hte palpable cord in the RLE is none acute. Patient has a wet cough on exam. He sounds coarse, particularly on the right side on auscultation. No wheezing is noted. Prompted coughing and he was unable to produce a forceful cough. Abdomen soft and nontender, postsurgical changes are noted. Bilateral lower extremity edema, worse in the right than the left. Plan obtain chest x-ray, baseline labs, EKG. patient is currently denying any symptoms although clearly he has having a frequent cough and does appear short of breath. Seems to be a poor historian. Is a patient has such a wet sounding cough, I am primarily concerned for infectious source will obtain chest x-ray as well as baseline labs. Also considering ACS, CHF. EKG reviewed by Dr. Dumont with no acute abnormalities noted. He was able to compare to previous with no acute changes Chest x-ray reviewed by radiologist concerning for patchy infiltrate in the right base which is new as well as cardiomegaly Plan to treat patient for pneumonia. She was recently hospitalized we will treat for community-acquired. Patient's BNP is over 3000. I do not see previous diagnosis of CHF. He does have upper extremity edema, worse on the right and the left. Plan to give Lasix. I do not see that he is on this at home. Patient received 20 mg of IV Lasix, 2 g of cefepime, 500 mg of azithromycin. Patient continues to be hypoxic. He continues to appear short of breath, particular with movement. Patient's is now at the bedside he reports that he appeared quite ill yesterday with a productive cough. She reports that he appeared fatigued and flushed. Plan to hospitalize the patient for pneumonia, hypoxia and CHF. Is a patient is typically [facility] will consult with them Spoke with admitting physician at [facility]. He requested VBG, lactate and advised obtaining a rapid influenza. He did request that I begin empiric treatment of possible influenza. That is available at the [facility], patient will be transferred to them via EMS. Discussed this plan with the patient and his on agreement [id number]. This appears chronic. Discussed with Dr. Rodney. pH normal. Influenza negative <Jonas Dumont MD - Last Filed: 11/19/18 16:30> ECG Data Attestation: I personally reviewed and interpreted this ECG (s) as follows: Prior ECG tracings: available for review Interpretation: afib, rate of 80, no acute st t wave ischemic changes, qtc 434 HPI <AYSE Kemp - Last Filed: 11/21/18 15:15> General Mode of arrival: EMS . Date/Time Provider Initiated Documentation: 11/19/18 16:10 . Limitations to Documentation: no limitations . Information obtained by: patient, EMS and RN notes reviewed . HPI Narrative: Patient is a 73-year-old male sent to the emergency department by health and rehab via EMS for chief complaint shortness of breath and hypoxia. EMS reports patient has been requiring 3 L of nasal cannula, desaturates into the mid 80s on room air. Patient has history of obesity, BPH, COPD, CVA, DVT, peripheral vascular insufficiency. He was hospitalized recently for failure to thrive. It is after that that he became a health and rehab patient. Patient himself is denying any complaints. He does not feel short of breath, denies chest pain, abdominal pain, nausea, any radiating discomfort. Reports that overall he is feeling quite well. Denies any recent illness. Denies any fevers or chills. Denies any cough or upper respiratory elements. Related Data Home Medications Medication Instructions Recorded Confirmed warfarin 5 mg PO DAILY 05/18/18 11/19/18 sertraline 25 mg PO DAILY 05/19/18 11/19/18 tamsulosin [Flomax] 0.4 mg PO DAILY 05/19/18 11/19/18 cholecalciferol (vitamin D3) 1,000 unit PO DAILY 10/28/18 11/19/18 folic acid 1 mg PO DAILY 10/28/18 11/19/18 gabapentin 300 mg PO TID 10/28/18 11/19/18 miconazole nitrate 10/28/18 ranitidine HCl 150 mg PO BID 10/28/18 11/19/18 apixaban 5 mg PO BID 11/19/18 11/19/18 cyanocobalamin (vitamin B-12) 1,000 mcg PO DAILY 11/19/18 11/19/18 gabapentin 600 mg PO .QHS 11/19/18 11/19/18 multivitamin 1 tab PO DAILY 11/19/18 11/19/18 nicotine .Q24 HOURS 11/19/18 Allergies Allergy/AdvReac Type Severity Reaction Status Date / Time No Known Allergies Allergy Unverified 11/19/18 17:04 General Stated Complaint: SOB SAHKIRA: 2 Review of Systems <AYSE Kemp - Last Filed: 11/21/18 15:15> Constitutional Reports as per HPI, Denies chills, Denies fatigue, Denies fever(s) and Denies poor appetite ENT Denies otalgia, Denies nasal congestion, Denies neck pain, Denies sinus pressure, Denies sore throat, Denies throat swelling and Denies tongue swelling Cardiovascular Denies chest pain, Denies chest pain at rest, Denies diaphoresis, Denies syncope, Denies radiating jaw, neck or arm pain, Denies palpitations, Reports dyspnea and Reports dyspnea on exertion Respiratory Reports as per HPI, Reports dyspnea and Reports dyspnea on exertion Gastrointestinal Reports as per HPI, Denies abdominal pain, Denies melena, Denies change in stool character, Denies diarrhea, Denies nausea and Denies vomiting Genitourinary Denies system reviewed and no additional complaints, except as docu (denies any change in urinary habits) Musculoskeletal Reports as per HPI, Denies back pain, Denies neck pain and Reports other (chronic RLE pain) Integumentary/Breasts Reports as per HPI, Denies erythema and Denies wounds Neurologic Denies syncope Endocrine Denies fatigue and Denies palpitations Allergic/Immunologic Denies throat swelling and Denies tongue swelling PFSH <AYSE Kemp - Last Filed: 11/21/18 15:15> Medical History BPH (benign prostatic hyperplasia) (Chronic) COPD (chronic obstructive pulmonary disease) (Chronic) CVA (cerebral vascular accident) (Chronic) DVT (deep venous thrombosis) (Chronic) Obesity (Chronic) Venous (peripheral) insufficiency (Chronic) Surgical History H/O abdominal surgery (Inactive) Social History Smoking/Tobacco Use Status: Current every day Tobacco Type: cigarettes Alcohol Intake: never Drug use: Never Substance use type: does not use Details: Nicotine patch Do you feel safe at home: No (My home is a mess) Do you feel safe in your relationship?: Yes Exam <AYSE Kemp - Last Filed: 11/21/18 15:15> Const General: cooperative, comfortable, no acute distress, well developed and ill appearing chronically Nutritional Appearance: well nourished and overweight Orientation: alert, awake and oriented x3 HENMT Head: normal to inspection Ears: hearing grossly normal bilaterally Mouth: moist mucous membranes Chest Chest: normal inspection of the chest, normal palpation of entire chest wall and no crepitus Resp Effort & Inspection: normal respiratory effort, able to speak in complete sentences and no respiratory distress Auscultation: no rales, rhonchi right upper and right lower and no wheezes Cardio Rate: regular rate Rhythm: regular rhythm Heart Sounds: S1 normal and S2 normal GI Inspection: normal to inspection, no edema and non-distended Palpation: soft, no hepatosplenomegaly, not firm, no guarding, not rigid and nontender Auscultation: normal bowel sounds Back/Spine/Pelvis Back: no CVA tenderness Thoracic/Lumbar Spine: thoracic and lumbar spine normal to inspection Skin General skin exam: no rashes or lesions noted Trauma: no lacerations or abrasions Neuro General: alert, awake and oriented x3 Cognition: normal cognition Speech: speech normal Gait: normal gait Extrem General: normal to inspection, normal capillary refill, abnormal gait (patient does not ambulate at baseline), calf tenderness (palpable cord) on the right and edema Laterality: bilateral (right > left) Psych Appearance: grossly normal and well kempt Mental Status: mental status grossly normal Speech and Movement: speech and movement normal Course <AYSE Kemp - Last Filed: 11/21/18 15:15> Vital Signs Temperature 36.7 C 11/19/18 16:11 Pulse 87 11/19/18 16:11 Respiratory Rate 22 11/19/18 16:11 Pulse Oximetry 95 11/19/18 16:11 Temperature 36.7 C 11/19/18 16:11 Temperature Source Temporal Artery Scan 11/19/18 16:11 Pulse 87 11/19/18 16:11 Respiratory Rate 22 11/19/18 16:11 Respiratory Effort Labored 11/19/18 16:16 Blood Pressure Position Supine 11/19/18 16:11 Pulse Oximetry 95 11/19/18 16:11 Oxygen Delivery Method Nasal Cannula 11/19/18 16:11 Oxygen Flow Rate 3 11/19/18 16:11 Pain Level 0 11/19/18 16:11
[2018-11-19 16:28] LABS: Abs Immature Grans 0.03 k/cumm (0.0-0.09); Absolute Basophil Count 0.02 k/cumm (0.0-0.2); Absolute Eosinophil Count 0.02 k/cumm (0.0-0.7); Absolute Lymphocyte Count 0.56 k/cumm (1.2-3.4); Absolute Monocyte Count 0.51 k/cumm (0.11-0.7); Absolute Neutrophil Count 3.81 k/cumm (1.2-6.7); Basophils % 0.4; Eosinophils % 0.4; HCT 47.3 % (40.0-50.0); HGB 14.1 g/dL (13.5-17.5); Immature Grans % 0.6; Lymphocytes % 11.3; Mean Corp. HGB Concentration 29.8 g/dL (32.0-36.0); Mean Corpuscular Hemoglobin 30.9 pg (27.0-33.0); Mean Corpuscular Volume 103.7 fL (80-95); Mean Platelet Volume 10.3 fL (8.0-11.0); Monocytes % 10.3; Platelet Count 197 x1000/uL (130-400); RBC 4.56 m/cumm (4.50-6.00); RBC Distribution Width 14.9 % (11.8-14.1); White Blood Cell Count 4.95 k/cumm (4.4-10.8)
[2018-11-19 16:42] LABS: INR 1.1 (0.9-1.1); Prothrombin Time 10.7 sec (9.3-11.0)
[2018-11-19 16:49] LABS: ALT 16 U/L (12-78); AST 15 U/L (15-37); Albumin 2.7 g/dL (3.4-5.0); Alkaline Phosphatase 102 U/L (46-116); Anion Gap 1.7 mmol/L (3-11); BUN 14 mg/dL (7-18); Bilirubin, Total 0.5 mg/dL (0.2-1.0); CO2 34.3 mmol/L (21.0-32.0); CREATININE 1.16 mg/dL (0.70-1.30); Calcium 8.8 mg/dL (8.5-10.1); Chloride 107 mmol/L (98-107); Glucose 94 mg/dL (70-100); Magnesium 1.8 mg/dL (1.8-2.4); NT-proBNP 3058 pg/mL; Potassium 4.9 mmol/L (3.5-5.1); Sodium 143 mmol/L (136-145)
--- NOTE | 2018-11-19 16:50 | DI.RAD_ITS ---
SYMPTOM/DIAGNOSIS: SOB AP AND LATERAL CHEST: Comparison is made with 10/28/18. The exam is limited secondary to the patient's body habitus. The heart is again noted to be enlarged. There are increased densities at the right lung base compared with the previous exam suspicious for pneumonia. There is also question of a small effusion. No left sided infiltrate is seen. Scoliosis and degenerative changes are noted in the spine. IMPRESSION: Right lower lobe pneumonia.
--- NOTE | 2018-11-19 16:55 | DI.VRAD_ITS ---
EXAM: XR Chest, 2 Views EXAM DATE/TIME: 11/19/2018 4:16 PM CLINICAL HISTORY: 73 years old, male; Signs and symptoms; Shortness of breath TECHNIQUE: Imaging protocol: XR of the chest, 2 views. COMPARISON: CR XR CHEST 2V PA LATERAL 10/28/2018 7:42 PM FINDINGS: Lungs: Patchy infiltrate at the right base. Pleural space: Unremarkable. No pleural effusion. No pneumothorax. Heart/Mediastinum: Cardiomegaly. Vasculature: Atherosclerosis. Bones/joints: Degenerative changes in the spine. IMPRESSION: 1. Patchy infiltrate at the right base. New. 2. Cardiomegaly Dictated and Authenticated by: Ruby Jose MD. Ordering:KUSHAL Torrez MD
[2018-11-19 16:59] LABS: Troponin I < 0.02 ng/mL (0.00-0.06)
[2018-11-19] MEDS: Furosemide 20 MG/2 ML VIAL IVP (17:55)
[2018-11-19] MEDS: CEFEPIME 2 GM in Normal Saline 100 ML IVPB (18:03)
[2018-11-19] MEDS: Normal Saline Flush 10 ML SYR IVP (18:15)
[2018-11-19] MEDS: AZITHROMYCIN 500 MG in Normal Saline 250 ML 250 MG IVPB (18:34)
[2018-11-19] MEDS: Oseltamivir 75 MG CAP PO (20:06)
[2018-11-19] MEDS: Albuterol/Ipratropium 3 ML UPD VIAL UPD (20:06)
[2018-11-19 20:19] LABS: BE (Venous) 7.7 mmol/L (-3-3); HCO3 (Venous) 34 mmol/L (22-28); O2 Sat (Venous) 81 % (70-80); TCO2 (Venous) 31 mmol/L (22-29); pH (Venous) 7.33 (7.32-7.43); pO2 (Venous) 42 mm/Hg (28-44)
[2018-11-19 20:21] LABS: Lactate-non-spesis 1.2 mmol/l (0.6-1.4)
[2018-11-19 20:52] LABS: pCO2 (Venous) 64 mm/Hg (34-47)
== END 2018-11-19 22:14 | disposition short-term general hospital (02) ==
LOC: ER 17:54
PROVIDERS: Emergency Provider Physician Assistant
DX: J18.9 Pneumonia, unspecified organism (principal); I50.9 Heart failure, unspecified; R09.02 Hypoxemia; I48.91 Unspecified atrial fibrillation; I51.7 Cardiomegaly; J44.9 Chronic obstructive pulmonary disease, unspecified; F17.210 Nicotine dependence, cigarettes, uncomplicated
CPT/HCPCS: 36415; 80053; 82805; 87449; 93005; 94640; 96361; 96365; 96375; 99285; 71046; 83605; 83735; 83880; 84484; 85025; 85610; 85730; 93010; J0456; J1941; J7620

== ENCOUNTER 2019-11-01 20:18 | Outpatient (REF) | payer MEDICARE, SELFPAY ==
[2019-11-01 21:15] LABS: Abs Immature Grans 0.01 k/cumm (0.0-0.09); Absolute Basophil Count 0.03 k/cumm (0.0-0.2); Absolute Eosinophil Count 0.14 k/cumm (0.0-0.7); Absolute Lymphocyte Count 1.51 k/cumm (1.2-3.4); Absolute Monocyte Count 0.48 k/cumm (0.11-0.7); Absolute Neutrophil Count 4.49 k/cumm (1.2-6.7); Basophils % 0.5; Eosinophils % 2.1; HCT 54.3 % (40.0-50.0); HGB 17.4 g/dL (13.5-17.5); Immature Grans % 0.2 %; Lymphocytes % 22.7; Mean Corpuscular Hemoglobin 31.6 pg (27.0-33.0); Mean Corpuscular Volume 98.5 fL (80-95); Mean Platelet Volume 11.7 fL (8.0-11.0); Monocytes % 7.2; Neutrophils % 67.3; Platelet Count 199 x1000/uL (130-400); RBC 5.51 m/cumm (4.50-6.00); RBC Distribution Width 14.1 % (11.8-14.1); White Blood Cell Count 6.66 k/cumm (4.4-10.8)
[2019-11-01 21:31] LABS: CREATININE 0.86 mg/dL (0.70-1.30)
== END 2019-11-01 20:38 ==
LOC: LBN 20:18
PROVIDERS: PCP Nurse Practitioner Adult Health; Visit Provider Internal Medicine
DX: I69.953 Hemiplegia and hemiparesis following unspecified cerebrovascular disease affecting right non-dominant side (principal); E43 Unspecified severe protein-calorie malnutrition; J44.9 Chronic obstructive pulmonary disease, unspecified
CPT/HCPCS: 82565; 85025

== ENCOUNTER 2020-06-12 14:29 | Outpatient (REF) | payer MEDICARE, SELFPAY ==
[2020-06-12 15:57] LABS: HGB 15.4 g/dL (13.5-17.5); MCH 30.3 pg (27.0-33.0); MCHC 30.8 % (32.0-36.0); MCV 98.4 fL (80-95); Platelet Count 204 10^3/uL (130-400); RBC 5.08 10^6/uL (4.36-5.78); RDW 14.6 % (11.8-14.1); RDW-SD 52.8 fL; WBC 5.59 10^3/uL (4.4-10.8)
[2020-06-12 16:47] LABS: ALT 30 U/L (16-63); AST 28 U/L (15-37); CREATININE 1.01 mg/dL (0.70-1.30)
== END 2020-06-12 14:49 ==
LOC: LBN 14:29
PROVIDERS: PCP Nurse Practitioner Adult Health; Visit Provider Internal Medicine
DX: Z79.01 Long term (current) use of anticoagulants (principal); I48.20 Chronic atrial fibrillation, unspecified; E43 Unspecified severe protein-calorie malnutrition; J44.9 Chronic obstructive pulmonary disease, unspecified; N40.0 Benign prostatic hyperplasia without lower urinary tract symptoms
CPT/HCPCS: 85027; 82565; 84450; 84460

== ENCOUNTER 2021-01-30 14:02 | Outpatient (REF) | payer MEDICARE, SELFPAY ==
[2021-01-30 15:15] LABS: Anion Gap 4.6 mmol/L (3-11); BUN 25 mg/dL (7-18); CO2 36.4 mmol/L (21.0-32.0); Calcium 8.7 mg/dL (8.5-10.1); Chloride 101 mmol/L (98-107); Glucose 123 mg/dL (74-106); Potassium 3.5 mmol/L (3.5-5.1); Sodium 142 mmol/L (136-145)
== END 2021-01-30 14:03 | disposition home or self-care (01) ==
LOC: LBN 14:02
PROVIDERS: PCP Nurse Practitioner Adult Health; Visit Provider Family Medicine
DX: E87.70 Fluid overload, unspecified (principal)
CPT/HCPCS: 80048

== ENCOUNTER 2021-02-03 16:26 | Day surgery (SDC) | payer MEDICARE, SELFPAY ==
[2021-02-03] VITALS (27 sets, daily range): BP systolic 90–125; BP diastolic 46–76; PULSE 68–118; RESP 14–26; TEMP 36; O2SAT 90–99; BMI 31.4
--- NOTE | 2021-02-03 16:45 | DI.CT_ITS ---
Exam(s) CT ABDOMEN PELVIS CTA EXAM: CT ABDOMEN PELVIS CTA CLINICAL HISTORY: brisk rectal hemorrhage. TECHNIQUE: Imaging Protocol: Axial CT angiography was performed with multi-slice acquisition and m ulti-planar and/or 3D reconstructions. CONTRAST MATERIAL: Intravenous: Omnipaque 350 Contrast volume:structured data in ml Oral: yes / no FINDINGS: ABDOMEN AND PELVIS: Abdomen: Celiac axis/mesenteric arteries: No evidence of occlusion or significant stenosis. Mild atherosclero sis at the origin. Renal Arteries: No evidence of occlusion or significant stenosis. There is a single renal artery per fusing each kidney. Aorta: No evidence of occlusion or significant stenosis. No aneurysm or dissection. Atherosclerosi s. 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 Moderate atherosclerosis. Common Femoral Arteries: Complete occlusion of the right femoral artery. Moderate atherosclerosis. ABDOMEN: Lung bases: There is a 2 mm pulmonary nodule in the left lower lobe. Liver: Normal density. No measurable mass. Portal, Superior Mesenteric, and Splenic Veins: Unremarkable. Gallbladder and Biliary Tract: Status post cholecystectomy. No biliary ductal dilatation. Pancreas: Pancreatic atrophy. No peripancreatic inflammatory process. Spleen: Normal. Adrenals: Stable adrenal nodules. Kidneys: Normal size, contour and axis. No radiodense stones or obstructive uropathy. No masses seen. Bowel: No obstruction or bowel wall thickening. A normal appendix is visualized. There is a small hi atal hernia. There is fluid seen throughout the colon. There is high density material near the junc tion of the descending colon and the proximal sigmoid colon. Active hemorrhage cannot be excluded. There is diverticulosis of the colon but no evidence of acute diverticulitis. Peritoneal Cavity: No ascites, collection or mesenteric inflammatory response. No free air. Lymph Nodes: Within normal limits. 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 Degenerative changes are seen in the spine. The bones are osteopenic. Soft Tissues: There is diffuse muscular fatty atrophy. There is a large ventral hernia containing un remarkable loops of small and large bowel. PELVIS: Bladder: Symmetric distention, no gross wall thickening. Reproductive Organs: The prostate gland is enlarged and impinges upon the base of the urinary bladder . Prostatic calcifications are present. Lymph Nodes: Within normal limits. Bones: Within normal limits. IMPRESSION: 1. Findings of active hemorrhage within the colon at the junction of the descending and sigmoid colon s. 2. 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 3. 2 mm pulmonary nodule in the left lower lobe. For low risk patients, no routine follow-up is randy mmended. For high risk patients (history of smoking or other known risk fractures), optional CT scan of the chest is recommended. RADIATION DOSE DELIVERED: 905.11mGy.cm Total DLP 905.11mGy.cm Total DLP DATA REPOSITORY: All CT scans at this facility are submitted to the National Radiology Data Registry (NRDR) Dose Index Registry (DIR) with the [employer] (ACR). RADIATION OPTIMIZATION: All CT scans at this facility use at least one of these dose optimization te chniques: automated exposure control; mA and/or kV adjustment per patient size (includes targeted exa ms where dose is matched to clinical indication); or iterative reconstruction.
[2021-02-03 16:47] LABS: Abs Immature Grans 0.02 10^3/uL (0.0-0.06); Absolute Basophil Count 0.05 10^3/uL (0.0-0.2); Absolute Eosinophil Count 0.18 10^3/uL (0.0-0.7); Absolute Lymphocyte Count 1.55 10^3/uL (1.2-3.4); Absolute Monocyte Count 0.61 10^3/uL (0.1-0.8); Absolute Neutrophil Count 4.81 10^3/uL (1.2-6.7); Basophils % 0.7; Eosinophils % 2.5; HCT 47.3 % (40.0-50.0); HGB 15.1 g/dL (13.5-17.5); Immature Grans % 0.3; Lymphocytes % 21.5; MCH 30.9 pg (27.0-33.0); MCHC 31.9 % (32.0-36.0); MCV 96.9 fL (80-95); Monocytes % 8.4; Neutrophils % 66.6; Nucleated RBC 0 %; Platelet Count 227 10^3/uL (130-400); RBC 4.88 10^6/uL (4.36-5.78); RDW-SD 50.4 fL; WBC 7.22 10^3/uL (4.4-10.8)
--- NOTE | 2021-02-03 16:56 | ED.GENADUL_ITS ---
Discharge Plan Discharge Details Chief Complaint: GI Bleed Attending Provider: Ankit Tierney Primary Care Provider: Sindy Gillis ED Provider: Paul Montilla Discharge Data Discharge Date/Time-TO BE ENTERED AT DEPARTURE: 02/03/21 19:45 Medical Decision Making 1723 --patient seen immediately on arrival - documentation delayed given acuity of illness and other acute patients in the emergency department. Briefly Mr. Flower is a 75-year-old male with multiple medical problems including history of DVT, on apixaban, sent from [facility] and rehab for rectal bleeding. Patient was noted to have significant dark maroon warm blood around his rectum. On rectal exam he had no flowing blood but the pool of blood he was sitting and was quite warm and he had some recurrent bleeding after nursing repositioned. Patient low normal blood pressure. Abdominal exam is nonperitoneal. I will initiate code blood treatment with uncrossed O PRBCs. Given apixaban I will also administer Kcentra and pantoprazole. I called and spoke with Dr. Tierney for stat consult and noted likely need for OR. She stated that she will evaluate the patient. I called and spoke with Dr. Hurtado, on-call hospitalist at recommendation of Dr. Tierney. 174 -- notified by housecalls nurse that we do in fact have andexxa - will administer stat instead of kaycentra. Will give TXA 1 g. 174 -- Nursing notes bleeding again. Will give 2nd unit blood. Dr. Tierney here to evaluate patient. --Dr. Tierney to take patient to the operating room. HPI General Mode of arrival: EMS . Date/Time Provider Initiated Documentation: 02/03/21 16:33 . Limitations to Documentation: altered mental status . Information obtained by: EMS . HPI Narrative: 75-year-old male with multiple medical problem occluding history of prior CVA, DVT on Eliquis, COPD, presents with chief complaint of rectal bleeding. Nursing at rehab facility noticed rectal bleeding just prior to calling EMS. Bleeding is severe. Dark red blood. No associated nausea or vomiting. No hematemesis. Patient has no abdominal pain. Patient denies having rectal bleeding in the past. He has no history of hemorrhoids. Patient last took Eliquis earlier today 8 AM. Related Data Home Medications Medication Instructions Recorded Confirmed sertraline 25 mg PO DAILY 05/19/18 11/19/18 tamsulosin [Flomax] 0.4 mg PO DAILY 05/19/18 11/19/18 cholecalciferol (vitamin D3) 1,000 unit PO DAILY 10/28/18 11/19/18 folic acid 1 mg PO DAILY 10/28/18 11/19/18 gabapentin 300 mg PO TID 10/28/18 11/19/18 miconazole nitrate 10/28/18 apixaban 5 mg PO BID 11/19/18 02/03/21 cyanocobalamin (vitamin B-12) 1,000 mcg PO DAILY 11/19/18 11/19/18 gabapentin 600 mg PO .QHS 11/19/18 11/19/18 multivitamin 1 tab PO DAILY 11/19/18 11/19/18 nicotine .Q24 HOURS 11/19/18 famotidine 20 mg PO BID 02/03/21 02/03/21 furosemide 40 mg PO BID 02/03/21 02/03/21 Allergies Allergy/AdvReac Type Severity Reaction Status Date / Time No Known Allergies Allergy Unverified 11/19/18 17:04 General Stated Complaint: GI Bleed SHAKIRA: 2 Review of Systems All systems reviewed & are unremarkable except as noted in HPI and below Constitutional Constitutional: Denies fever(s) Gastrointestinal Gastrointestinal: Reports as per HPI, Denies abdominal pain and Denies vomiting [facility] Medical History (Updated 02/03/21 @ 23:49 by Ankit Tierney MD) BPH (benign prostatic hyperplasia) COPD (chronic obstructive pulmonary disease) CVA (cerebral vascular accident) DVT (deep venous thrombosis) Obesity Venous (peripheral) insufficiency Surgical History H/O abdominal surgery Social History Smoking/Tobacco Use Status: Current every day Tobacco Type: cigarettes Years smoked: 60 Smoking risk assessment performed?: Yes Alcohol Intake: never Drug use: Never Substance use type: does not use Details: Nicotine patch Do you feel safe at home: No (My home is a mess) Do you feel safe in your relationship?: Yes Exam Const General: cooperative and no acute distress HENMT Mouth: moist mucous membranes Eyes Conjunctivae: normal conjunctivae Sclera: normal sclerae Neck Neck: trachea midline and supple Resp Auscultation: clear to auscultation bilaterally, no rales, no rhonchi and no wheezes Cardio Rate: regular rate and not tachycardic Rhythm: regular rhythm GI Inspection: other (Midline abdominal scar healed) Palpation: soft, not firm, no guarding, no masses, not rigid and nontender Skin General skin exam: no rashes or lesions noted Neuro General: patient alert, patient awake, oriented Patient Orientation: Person and Confused and tone normal Psych Appearance: grossly normal Speech and Movement: speech and movement normal Course Vital Signs Vital signs: Vital Signs Temperature 36 C L 02/03/21 16:49 Pulse 75 02/03/21 16:49 Respiratory Rate 16 02/03/21 16:49 Blood Pressure 103/57 L 02/03/21 16:49 Pulse Oximetry 99 02/03/21 16:49 Temperature 36 C L 02/03/21 16:49 Temperature Source Temporal Artery Scan 02/03/21 16:49 Pulse 75 02/03/21 16:49 Respiratory Rate 16 02/03/21 16:49 Blood Pressure 103/57 L 02/03/21 16:49 Blood Pressure Position Supine 02/03/21 16:49 Pulse Oximetry 99 02/03/21 16:49 Oxygen Delivery Method Room Air 02/03/21 16:49 Oxygen Flow Rate 0 02/03/21 16:49 Pain Level 0 02/03/21 16:49 Lab/Test Results Lab/Test Results: Laboratory Tests Range/Units 02/03/21 16:25 WBC (4.4-10.8) 10^3/uL 7.22 RBC (4.36-5.78) 10^6/uL 4.88 Hgb (13.5-17.5) g/dL 15.1 Hct (40.0-50.0) % 47.3 MCV (80-95) fL 96.9 H MCH (27.0-33.0) pg 30.9 MCHC (32.0-36.0) % 31.9 L RDW (11.8-14.1) % 14.0 Plt Count (130-400) 10^3/uL 227 MPV (8.0-11.0) fL 10.0 Immature Gran % 0.3 Neutrophils % 66.6 Lymphocytes % 21.5 Monocytes % 8.4 Eosinophils % 2.5 Basophils % 0.7 Nucleated RBC % % 0 Absolute Neutrophils (1.2-6.7) 10^3/uL 4.81 Absolute Lymphocytes (1.2-3.4) 10^3/uL 1.55 Absolute Monocytes (0.1-0.8) 10^3/uL 0.61 Absolute Eosinophils (0.0-0.7) 10^3/uL 0.18 Absolute Basophils (0.0-0.2) 10^3/uL 0.05 Critical Care Time Critical Care Time Critical Care Time: Yes Total Critical Care Time: 55 Attestation: I spent greater than 55 minutes addressing this patient's immediate life threats. Please see MDM section of note. This time was spent engaged in work directly related to the patient's care, exclusive of separate procedures, and failure to initiate these interventions would have likely resulted in clinically significant or life threatening deterioration in the patient's condition.
[2021-02-03 17:00] LABS: ALT 23 U/L (16-63); AST 23 U/L (15-37); Albumin 2.8 g/dL (3.4-5.0); Alkaline Phosphatase 120 U/L (46-116); Anion Gap 4.4 mmol/L (3-11); BUN 26 mg/dL (7-18); Bilirubin, Total 0.8 mg/dL (0.2-1.0); CO2 34.6 mmol/L (21.0-32.0); CREATININE 1.1 mg/dL (0.70-1.30); Chloride 103 mmol/L (98-107); Glucose 103 mg/dL (74-106); Potassium 3.4 mmol/L (3.5-5.1); Sodium 142 mmol/L (136-145); Total Protein 6.9 g/dL (6.4-8.2)
[2021-02-03] MEDS: Pantoprazole 40 MG VIAL IVP (17:22)
[2021-02-03] MEDS: PANTOPRAZOLE 80 MG in Normal Saline 100 ML 10 MG IV (17:23)
--- NOTE | 2021-02-03 17:25 | NUR.NOTE ---
1 unit of blood has infused Nursing Note:
[2021-02-03 17:27] LABS: INR 1.2 (0.9-1.1); PTT Activated 23.9 sec (21.0-27.5); Prothrombin Time 12.2 sec (9.3-11.0)
[2021-02-03] MEDS: Normal Saline - Diluent 50 ML VIAL IV (18:27)
[2021-02-03] MEDS: Omnipaque 350 MG/ML 100 ML BTL IJ (18:27)
--- NOTE | 2021-02-03 18:44 | W.ANESPRE ---
General Info Date of Service Date Performed: 02/03/21 Height: 5 ft 5 in Weight: 85.5 kg Body Mass Index (BMI): 31.4 Surgical Procedure: Operation Date: 02/03/21 19:00 Proposed Procedures Side Surgeon p Exploratory Laparotomy Ankit Tierney MD Meds Allergies and Home Medications Allergies Allergy/AdvReac Type Severity Reaction Status Date / Time No Known Allergies Allergy Unverified 11/19/18 17:04 Home Medication Medication Instructions Recorded sertraline 25 mg PO DAILY 05/19/18 tamsulosin [Flomax] 0.4 mg PO DAILY 05/19/18 cholecalciferol (vitamin D3) 1,000 unit PO DAILY 10/28/18 folic acid 1 mg PO DAILY 10/28/18 gabapentin 300 mg PO TID 10/28/18 miconazole nitrate 10/28/18 ranitidine HCl 150 mg PO BID 10/28/18 apixaban 5 mg PO BID 11/19/18 cyanocobalamin (vitamin B-12) 1,000 mcg PO DAILY 11/19/18 gabapentin 600 mg PO .QHS 11/19/18 multivitamin 1 tab PO DAILY 11/19/18 nicotine .Q24 HOURS 11/19/18 famotidine 20 mg PO BID 02/03/21 furosemide 40 mg PO BID 02/03/21 Current Visit Medications: Current Medications Generic Name Dose Route Start Last Admin Trade Name Freq PRN Reason Stop Dose Admin Sodium Chloride 500 mls @ 0 mls/hr 02/03/21 16:33 Saline 500ml Bag IV PRN PRN As Directed Pantoprazole Sodium 80 mg/ 100 mls @ 10 mls/hr 02/03/21 16:45 02/03/21 17:23 Sodium Chloride IV 10 mls/hr INFUSION [facility] Administration IV Miscellaneous Supplies 1 each 02/03/21 16:45 Iv Access IV DIRECTED FOUZIA Iohexol 100 ml 02/03/21 18:30 02/03/21 18:27 Omnipaque 350 Mg/Ml 100 Ml Btl IJ 03/05/21 23:59 100 ml DIRECTED [facility] Administration Prothrombin Complex Concent (Human) 2,000 unit 02/03/21 17:15 Human Prothrombin Complex(Pcc) 1,000 Unit Vial IVPB DIRECTED [facility] Sodium Chloride 0 ml 02/03/21 16:33 Normal Saline Flush 10 Ml Syr IVP PRN PRN Sodium Chloride 50 ml 02/03/21 18:30 02/03/21 18:27 Normal Saline - Diluent 50 Ml Vial IV 50 ml .FOR DI USE FOUZIA Administration ON LICENSE OF [facility] Medical History Medical History BPH (benign prostatic hyperplasia) COPD (chronic obstructive pulmonary disease) CVA (cerebral vascular accident) DVT (deep venous thrombosis) Obesity Venous (peripheral) insufficiency Surgical History Surgical History H/O abdominal surgery Tobacco Smoking/Tobacco Use Status: Current every day Tobacco Type: cigarettes Years smoked: 60 Alcohol Alcohol Intake: never Substance Use Substance use: Never Substance use type: does not use Details: Nicotine patch Vital Signs and Lab Results Vital Signs Most Recent Vital Signs in EMR: Most Recent Vital Signs Temp Pulse Resp BP Pulse Ox 36 C L 75 22 120/53 L 96 02/03/21 16:49 02/03/21 18:30 02/03/21 18:31 02/03/21 18:30 02/03/21 18:31 Lab Results Result Diagrams: 02/03/21 16:25 02/03/21 16:25 Blood Type / Crossmatch: Patient ABO/Rh A Positive 02/03/21 16:25 02/03/21 Antibody Screen NEGATIVE 02/03/21 16:25 02/03/21 Crossmatch See Detail 02/03/21 16:25 02/03/21 Complete Blood Count: White Blood Count 7.22 10^3/uL (4.4-10.8) 02/03/21 16:25 02/03/21 Red Blood Count 4.88 10^6/uL (4.36-5.78) 02/03/21 16:25 02/03/21 Hemoglobin 15.1 g/dL (13.5-17.5) 02/03/21 16:25 02/03/21 Hematocrit 47.3 % (40.0-50.0) 02/03/21 16:25 02/03/21 Platelet Count 227 10^3/uL (130-400) 02/03/21 16:25 02/03/21 Complete Metabolic Panel: Sodium Level 142 mmol/L (136-145) 02/03/21 16:25 02/03/21 Potassium Level 3.4 mmol/L (3.5-5.1) L 02/03/21 16:25 02/03/21 Chloride Level 103 mmol/L (98-107) 02/03/21 16:25 02/03/21 Carbon Dioxide Level 34.6 mmol/L (21.0-32.0) H 02/03/21 16:25 02/03/21 Blood Urea Nitrogen 26 mg/dL (7-18) H 02/03/21 16:25 02/03/21 Creatinine 1.1 mg/dL (0.70-1.30) 02/03/21 16:25 02/03/21 Estimated GFR/1.73 m2 >= 60.00 (mL/min/1.73m2) 02/03/21 16:25 02/03/21 Calcium Level 9.0 mg/dL (8.5-10.1) 02/03/21 16:25 02/03/21 Albumin 2.8 g/dL (3.4-5.0) L 02/03/21 16:25 02/03/21 Glucose Level 103 mg/dL (74-106) 02/03/21 16:25 02/03/21 Liver Function Panel: Alanine Aminotransferase (ALT/SGPT) 23 U/L (16-63) 02/03/21 16:25 02/03/21 Aspartate Amino Transf (AST/SGOT) 23 U/L (15-37) 02/03/21 16:25 02/03/21 Coagulation Panel: INR International Normalized Ratio 1.2 (0.9-1.1) H 02/03/21 17:05 02/03/21 Prothrombin Time 12.2 sec (9.3-11.0) H 02/03/21 17:05 02/03/21 Activated Partial Thromboplast Time 23.9 sec (21.0-27.5) 02/03/21 17:05 02/03/21 Cardiac Panel: No Data to Display Arterial Blood Gas: No Data to Display Venous Blood Gas: No Data to Display Pancreas Panel: No Data to Display Thyroid Panel: No Data to Display Infectious Disease: Coronavirus (COVID-19)(PCR) Pending 02/03/21 17:28 02/03/21 Coronavirus 2019 Source Pending 02/03/21 17:28 02/03/21 Blood Cultures: No Data to Display Toxicology Panel: No Data to Display Anesthesia Assessment and Plan Anesthesia History Personal History: No History of Anesthesia Complications Family History: No Family History of Anesthesia Complications Exercise Tolerance Exercise Tolerance: Metabolic Equivalents<4 Pertinent Negatives Pertinent Negatives: No Symptoms of GERD Cardiac & Pulmonary Exam Cardiac Exam: Normal S1/S2 Heart Sounds Pulmonary Exam: Clear Bilateral Breath Sounds Airway Exam Known Difficult Airway: No Mallampati Class: 2 Mouth Opening: Normal (> 3cm) Thyromental Distance: Greater than 3 cm Neck Range of Motion: Full ROM Neck Circumference: Thick Teeth Condition: Edentulous ASA Classification ASA Score: ASA 4 Emergency Case?: Yes NPO Status NPO Status: NPO Clears >2 hours, Solids >8 hours Anesthesia Plan Resuscitation Status: Full Code Anesthesia Technique: General Anesthesia Airway Planned: Endotracheal Tube Monitors Used: Standard Monitors Preoperative Comments:: Family and patient denies cardiac history. Stroke was from trauma leaving limited right extremity use. Pt. Is only on elaquis. He has received 2 units O negative, PCC, and 1 gram TXA. Limited history as [facility]. He continues to hemorrhage.
--- NOTE | 2021-02-03 18:55 | DI.VRAD_ITS ---
PROCEDURE INFORMATION: Exam: CT Angiography Abdomen and Pelvis With Contrast, GI Bleeding Exam date and time: 02/03/2021 4:58 PM Age: 75 years old Clinical indication: Other: Brisk gi bleed TECHNIQUE: Imaging protocol: Computed tomographic angiography of the abdomen and pelvis with contrast. 3D rendering (Not supervised by radiologist): MIP and/or 3D reconstructed images were created by the technologist. COMPARISON: CT Private^ROUTINE ABDOMEN PELVIS WITH CONTRAST (Adult) 05/18/2018 5:07 PM FINDINGS: Lungs: Punctate 2 mm parenchymal lung nodule nodule within the posterior left lower lobe (series 5, image 4). Aorta: No aortic aneurysm. No aortic dissection. Celiac trunk and mesenteric arteries: No occlusion or significant stenosis. Renal arteries: No occlusion or significant stenosis. Right iliac arteries: No occlusion or significant stenosis. Right femoral/popliteal arteries: The right external, common femoral and visualized portions of the superficial femoral artery are occluded. Left iliac arteries: No occlusion or significant stenosis. Liver: No mass. Gallbladder and bile ducts: Status post cholecystectomy. Pancreas: Unremarkable. No mass. No ductal dilation. Spleen: Unremarkable. No splenomegaly. Adrenal glands: Normal. No mass. Kidneys and ureters: Bilateral moderate to severe cortical renal atrophy, left greater than right. No hydronephrosis. Wedge-shaped defect within the inferior pole of the left kidney most likely a prior infarct. Stomach and bowel: The large bowel is diffusely distended and filled with fluid. There is a large midline ventral hernia containing multiple loops of small and large bowel. Appendix: No evidence of appendicitis. Intraperitoneal space: There is active contrast extravasation compatible with hemorrhage within the distal left descending colon/sigmoid junction (series 5, image 42). Lymph nodes: Unremarkable. No enlarged lymph nodes. Urinary bladder: Unremarkable. No mass. Reproductive: Unremarkable as visualized. Bones/joints: Chronic deformity of the left femur most likely compatible with a prior fracture. Bilateral moderate to severe low osteoarthritis of the hips. Soft tissues: Unremarkable. IMPRESSION: 1. Active hemorrhage within the distal left descending colon likely from descending branch of the left colic artery. 2. right external, common femoral and visualized portions of the superficial femoral artery are occluded. 3. Large ventral hernia containing multiple loops of small and large bowel. 4. Punctate 2 mm parenchymal lung nodule nodule within the posterior left lower lobe. For patients at low risk (minimal or absent history of smoking and of other known risk factors), no routine follow-up is indicated. For patients at high risk (history of smoking or of other known risk factors), consider optional CT Chest at 12 months. (Reference: Gaston) References: Gaston De La Cruz et al. Guidelines for Management of Incidental Pulmonary Nodules Detected on CT Images: From the Fleischner Society 2017. Radiology. 2017;284(1):228-243. THIS REPORT CONTAINS FINDINGS THAT MAY BE CRITICAL TO PATIENT CARE. The findings were verbally communicated via telephone conference with FARIDA AGUDELO at 6:53 PM EDT on 02/03/2021. The findings were acknowledged and understood. Dictated and Authenticated by: Car Galvin MD. Ordering:ASHOK Miller MD
--- NOTE | 2021-02-03 18:55 | NUR.NOTE ---
Nursing Note: pt recieved 2nd unit of blood infused by 182
[2021-02-03] MEDS: Lactated Ringers 1,000 ML 1000 ML IV (19:10)
[2021-02-03 19:14] LABS: Source Nasal/Nares
--- NOTE | 2021-02-03 19:15 | RT.EKG_ITS ---
APPROVED REPORT Exam: Resting ECG Reason for Exam: active gi bleed Patient Location: E HR:112 bpm ECG Measurements Heart Rate 112 AXIS IA [id number] P [id number] QRSd 86 QRS -60 QT 333 T 98 QTc 454 Conclusion Atrial fibrillation...V-rate 74-142, irreg A-activity Left anterior fascicular block...axis(240,-40), init forces inf Consider anterior infarct...Q >30mS in V2-V5 Nonspecific repol abnormality, lateral leads...ST dep, T neg, I aVL V5 V6
--- NOTE | 2021-02-03 19:51 | NUR.NOTE ---
attempted a serrano cath un able to pass it due to an enlargedprostate Nursing Note:
[2021-02-03] MEDS: Tranexamic Acid 1,000 MG/10 ML VIAL 1000 MG (20:00)
[2021-02-03 20:30] LABS: BE 3 mmol/L (-2-3); HCO3 28 mmol/L (22-26); pCO2 51 mmHg (35-45); pH 7.35 (7.35-7.45); pO2 145 mmHg (80-105)
[2021-02-03 20:31] LABS: COVID-19 PCR Negative (Negative)
[2021-02-03 20:35] LABS: FIO2 70 %; Site Arterial Line; sO2 > 99 % (95-98)
[2021-02-03 20:47] LABS: HCT 43.2 % (40.0-50.0); MCH 30.2 pg (27.0-33.0); MCHC 32.4 % (32.0-36.0); MCV 93.1 fL (80-95); MPV 10.6 fL (8.0-11.0); Platelet Count 158 10^3/uL (130-400); RBC 4.64 10^6/uL (4.36-5.78); RDW 15.2 % (11.8-14.1); RDW-SD 52.2 fL; WBC 8.72 10^3/uL (4.4-10.8)
[2021-02-03 21:02] LABS: ALT 15 U/L (16-63); AST 20 U/L (15-37); Alkaline Phosphatase 79 U/L (46-116); Anion Gap 9.3 mmol/L (3-11); BUN 28 mg/dL (7-18); Bilirubin, Total 1.8 mg/dL (0.2-1.0); CO2 26.7 mmol/L (21.0-32.0); Calcium 7.8 mg/dL (8.5-10.1); Chloride 106 mmol/L (98-107); Glucose 197 mg/dL (74-106); Potassium 4.5 mmol/L (3.5-5.1); Sodium 142 mmol/L (136-145); Total Protein 4.8 g/dL (6.4-8.2)
--- NOTE | 2021-02-03 21:10 | W.SURGCON ---
Date of service: 02/03/21 Time of Service: 21:11 Assessment and Plan Assessment and plan (1) Lower GI bleed requiring more than 4 units of blood in 24 hours, ICU, or surgery: Status: Acute Assessment and plan: This is a 75-yo male who was brought in by ambulance from rehab with acute melanotic bleeding. He is on Eliquis for h/o CVA, DVT, , and his last dose was at 8am. General Surgery was consulted by Dr. Montilla of the Emergency Department, and I requested a CT angio of the abd/pel, and Hospitalist Medicine involvement. During my evaluation of the patient, he was being actively transfused and receiving products to counteract Eliquis, and I witnessed multiple episodes of passing large amounts of melena. The CT angio revealed a blush in the descending colon. However, efforts to ensure transport to a tertiary care center for IR management were not immediately available. So the decision was made to take the patient to the operating room for colonoscopy to attempt hemostasis, and possible ex lap, bowel resection, ostomy, if the bleeding could not be controlled. Prior to obtaining consent, I had an extensive conversation with the patient and his family about the difficulty of managing this patient, and what I was going to try to achieve in the operating room. Given the patient's very abnormal anatomy and body contractures, along with his history of massive hernia with mesh, it could be a very difficult operation if we had to proceed with an ex lap. I also reviewed that postoperatively he may require prolonged intubation, and may have an open abdomen. The patient and his family demonstrated understanding of these serious concerns, and the patient signed consent. The patient wishes to full code. History of Present Illness History of Present Illness Chief Complaint: GI bleed Narrative: This is a 75-year-old male with multiple medical problems, including history of prior CVA, DVT on Eliquis, COPD, presents with chief complaint of rectal bleeding. He has no associated nausea, vomiting, or hematemesis. Denies any reflux or heartburn symptoms. Patient has no abdominal pain. Patient denies having rectal bleeding in the past. He has no history of hemorrhoids. Patient last took Eliquis earlier today 8 AM. Consults Consult date: 02/03/21 Requesting physician: Paul Montilla Review of Systems ENT Ears, Nose, Mouth, and Throat: Reports abnormal hearing Cardiovascular Cardiovascular: Denies chest pain, Reports leg edema and Denies dyspnea Respiratory Respiratory: Reports cough, Denies hemoptysis and Denies dyspnea Gastrointestinal Gastrointestinal: Denies abdominal pain, Reports hematochezia (maroon), Reports tenesmus (melena), Reports fecal incontinence and Reports hematemesis Genitourinary Genitourinary: Reports hematospermia (h/o hematuria, now s/p cystoscopy) Musculoskeletal Musculoskeletal: Reports tingling Comments: with lower extremity contractures Neurologic Neurologic: Reports abnormal hearing and Reports tingling Comments: mostly wheelchair, and bedbound Hematologic/Lymphatic Comments: <del>a</del>nti-coagulated on Eliquis [facility] Medical History (Updated 02/03/21 @ 23:49 by Ankit Tierney MD) BPH (benign prostatic hyperplasia) COPD (chronic obstructive pulmonary disease) CVA (cerebral vascular accident) DVT (deep venous thrombosis) Obesity Venous (peripheral) insufficiency Surgical History H/O abdominal surgery Social History Smoking/Tobacco Use Status: Current every day Tobacco Type: cigarettes Years smoked: 60 Smoking risk assessment performed?: Yes Alcohol Intake: never Drug use: Never Substance use type: does not use Details: Nicotine patch Do you feel safe at home: No (My home is a mess) Do you feel safe in your relationship?: Yes Exam Const General: cooperative, not healthy appearing, comfortable, disheveled and frail appearing Orientation: alert, awake, oriented x3, oriented to person and oriented to place [facility] Head: no raccoon eyes Teeth and gingiva: edentulous Resp Effort & Inspection: no grunting, not labored, no nasal flaring and no pursed lip breathing Auscultation: bronchial breath sounds Cardio Rate: regular rate and tachycardic Rhythm: regular rhythm Heart Sounds: S1 normal and S2 normal GI Other: +bowell sounds;obese; soft, non-tender, non-distended, healed midline wide-spaced incision; massive hernia/abdominal loss of domain, with left deplacement of most of herniated abdominal viscera Back/Spine/Pelvis Other: lower extremity contractures Neuro General: patient alert, patient awake and patient oriented x3 Extrem Other: Unna boot to right lower extremity; signs of chronic venous insufficiency to mid-calf with edema of left lower extremity Psych Other: a little difficult to understand his annunciation at times, but overall seems cooperative and appropriate Results Last Vital Signs Temp 96.8 F L 02/03/21 16:49 Pulse 94 H 02/03/21 19:10 Resp 22 02/03/21 19:10 BP 107/60 02/03/21 19:10 Pulse Ox 98 02/03/21 19:01 Labs Result diagrams: 02/03/21 20:25 02/03/21 20:25 Labs: Laboratory Results - last 24 hr 02/03/21 02/03/21 02/03/21 02:30 16:25 16:25 WBC 7.22 RBC 4.88 Hgb 15.1 Hct 47.3 MCV 96.9 H MCH 30.9 MCHC 31.9 L RDW 14.0 Plt Count 227 MPV 10.0 Immature Gran % 0.3 Neutrophils % 66.6 Lymphocytes % 21.5 Monocytes % 8.4 Eosinophils % 2.5 Basophils % 0.7 Nucleated RBC % 0 Absolute Neutrophils 4.81 Absolute Lymphocytes 1.55 Absolute Monocytes 0.61 Absolute Eosinophils 0.18 Absolute Basophils 0.05 PT INR APTT ABG Sample Site Arterial Line ABG pH 7.35 ABG pCO2 51 H ABG pO2 145 H ABG HCO3 28 H ABG O2 Saturation > 99 H ABG Base Excess 3 FiO2 70 Sodium 142 Potassium 3.4 L Chloride 103 Carbon Dioxide 34.6 H Anion Gap 4.4 BUN 26 H Creatinine 1.1 Estimated GFR/1.73 m2 >= 60.00 Glucose 103 Calcium 9.0 Total Bilirubin 0.8 AST 23 ALT 23 Alkaline Phosphatase 120 H Total Protein 6.9 Albumin 2.8 L COVID-19 Source SARS-CoV-2 (PCR) Patient ABO/Rh Antibody Screen Crossmatch 02/03/21 02/03/21 02/03/21 16:25 17:05 19:10 WBC RBC Hgb Hct MCV MCH MCHC RDW Plt Count MPV Immature Gran % Neutrophils % Lymphocytes % Monocytes % Eosinophils % Basophils % Nucleated RBC % Absolute Neutrophils Absolute Lymphocytes Absolute Monocytes Absolute Eosinophils Absolute Basophils PT 12.2 H INR 1.2 H APTT 23.9 ABG Sample Site ABG pH ABG pCO2 ABG pO2 ABG HCO3 ABG O2 Saturation ABG Base Excess FiO2 Sodium Potassium Chloride Carbon Dioxide Anion Gap BUN Creatinine Estimated GFR/1.73 m2 Glucose Calcium Total Bilirubin AST ALT Alkaline Phosphatase Total Protein Albumin COVID-19 Source Nasal/Nares SARS-CoV-2 (PCR) Negative Patient ABO/Rh A Positive Antibody Screen NEGATIVE Crossmatch See Detail 02/03/21 02/03/21 02/03/21 20:25 20:25 20:25 WBC 8.72 RBC 4.64 Hgb 14.0 Hct 43.2 MCV 93.1 D MCH 30.2 MCHC 32.4 RDW 15.2 H Plt Count 158 MPV 10.6 Immature Gran % Neutrophils % Lymphocytes % Monocytes % Eosinophils % Basophils % Nucleated RBC % Absolute Neutrophils Absolute Lymphocytes Absolute Monocytes Absolute Eosinophils Absolute Basophils PT 12.5 H INR 1.2 H APTT 23.0 ABG Sample Site ABG pH ABG pCO2 ABG pO2 ABG HCO3 ABG O2 Saturation ABG Base Excess FiO2 Sodium 142 Potassium 4.5 D Chloride 106 Carbon Dioxide 26.7 Anion Gap 9.3 BUN 28 H Creatinine 1.0 Estimated GFR/1.73 m2 >= 60.00 Glucose 197 H D Calcium 7.8 L Total Bilirubin 1.8 H AST 20 ALT 15 L Alkaline Phosphatase 79 Total Protein 4.8 L Albumin 2.0 L COVID-19 Source SARS-CoV-2 (PCR) Patient ABO/Rh Antibody Screen Crossmatch Imaging Abdomen CT scan report/results: report reviewed and image reviewed CT scan - pelvis: report reviewed and image reviewed Imaging Studies: CT Angio Abd/Pel (02/04/21): IMPRESSION: 1. Active hemorrhage within the distal left descending colon likely from descending branch of the left colic artery. 2. right external, common femoral and visualized portions of the superficial femoral artery are occluded. 3. Large ventral hernia containing multiple loops of small and large bowel. 4. Punctate 2 mm parenchymal lung nodule nodule within the posterior left lower lobe. For patients at low risk (minimal or absent history of smoking and of other known risk factors), no routine follow-up is indicated. For patients at high risk (history of smoking or of other known risk factors), consider optional CT Chest at 12 months. (Reference: [place])
[2021-02-03 21:12] LABS: Prothrombin Time 12.5 sec (9.3-11.0)
[2021-02-03 21:16] LABS: INR 1.2 (0.9-1.1)
--- NOTE | 2021-02-04 00:18 | W.COLOREPORT ---
Date of service: 02/03/21 Time of Service: 20:50 Colonoscopy Report Date of procedure: 02/03/21 Pre-op diagnosis general: massive lower gastrointestinal bleeding Post-op diagnosis procedure note: same Procedure: Flexible sigmoidoscopy Surgeon: Ankit Tierney Anesthesia Type: General LMA/ETT Estimated blood loss (mL): 500 Pathology: none sent Complications: Other (Large amount of dark melanotic stool made it futile to try to visualize the area bleeding) Disposition: other ([facility]) Indications: This is a 75-year-old male who presented with lower GI bleed of melanotic stool. He has a h/o CVA, DVT on Eliquis. He underwent transfusion of 2U PRBC in the ED, and infusion of reversal medications to counteract Eliquis. A CTA of the abd/pelrevealed an active blush in the descending colon. Even with the transfusions, the patient continued to passive large amounts of melena, and was hemodynamically labile. Given transfer to a tertiary center was not immediately available, the decision was made to try to temper the bleeding with colonoscopy. Findings: dark thick blood obscuring safe visualization Procedure Description: The patient was brought into the operating room and moved to the OR table. Once his vitals signs were adequately supported with continued transfusions, general anesthesia was induced and the patient was intubated. A time out was called, and participated in by the entire OR team. Of note, extensive supportive/backup staff were called in to help in the support of caring for this patient. An attempt at sterile placement of a Zamorano catheter was difficult, and a Coudet catheter was placed in this patient with known prostatic enlargement. Securing the ETT, and all IVs, the patient was repositioned in left lateral decub position. Dark melena was still passing through the patulous rectum. The colonoscope was introduced and slow and careful attempt to advance the scope was quickly abandoned. Even with irrigation, adequate visualization could not be achieved, and the procedure was aborted.
== END 2021-02-03 19:43 | disposition home or self-care (01) ==
LOC: ER 16:41 → DSU 19:43
PROVIDERS: Nurse Anesthetist, Certified Registered; Emergency Provider Student in an Organized Health Care Education/Training Program; PCP Nurse Practitioner Adult Health; Visit Provider Surgery
PROC: 0DJD8ZZ Inspection of Lower Intestinal Tract, Via Natural or Artificial Opening Endoscopic (ICD-10-PCS; CPT 45378; principal; 2021-02-03 19:30)
DX: K62.5 Hemorrhage of anus and rectum (principal); Z86.73 Personal history of transient ischemic attack (TIA), and cerebral infarction without residual deficits; Z86.718 Personal history of other venous thrombosis and embolism; Z79.01 Long term (current) use of anticoagulants; J44.9 Chronic obstructive pulmonary disease, unspecified
CPT/HCPCS: 45330; 80053; 82805; 85027; 86850; 86900; 86901; 86920; 87081; 87635; 93005; 96360; 96365; 96366; 96375; 99284; 99291; 74174; 85025; 85610; 85730; 93010; J2250; J3490; P9016; P9059

== ENCOUNTER 2021-02-14 21:29 | Outpatient (REF) | payer MEDICARE, SELFPAY ==
[2021-02-14 22:10] LABS: Abs Immature Grans 0.04 10^3/uL (0.0-0.06); Absolute Basophil Count 0.07 10^3/uL (0.0-0.2); Absolute Eosinophil Count 0.17 10^3/uL (0.0-0.7); Absolute Lymphocyte Count 1.61 10^3/uL (1.2-3.4); Absolute Monocyte Count 0.55 10^3/uL (0.1-0.8); Absolute Neutrophil Count 4.84 10^3/uL (1.2-6.7); Eosinophils % 2.3; HCT 47.9 % (40.0-50.0); HGB 14.8 g/dL (13.5-17.5); Immature Grans % 0.5; Lymphocytes % 22.1; MCH 30.1 pg (27.0-33.0); MCHC 30.9 % (32.0-36.0); MCV 97.6 fL (80-95); MPV 11.3 fL (8.0-11.0); Monocytes % 7.6; Neutrophils % 66.5; Nucleated RBC 0 %; Platelet Count 244 10^3/uL (130-400); RBC 4.91 10^6/uL (4.36-5.78); RDW 15.1 % (11.8-14.1); RDW-SD 53.5 fL; WBC 7.28 10^3/uL (4.4-10.8)
== END 2021-02-14 21:30 | disposition home or self-care (01) ==
LOC: LBN 21:29
PROVIDERS: PCP Nurse Practitioner Adult Health; Visit Provider Nurse Practitioner Adult Health
DX: K92.2 Gastrointestinal hemorrhage, unspecified (principal); I82.409 Acute embolism and thrombosis of unspecified deep veins of unspecified lower extremity
CPT/HCPCS: 85025